=== PATIENT | female | born 1970 | race Hispanic/Latino ===

== ENCOUNTER 2024-08-17 11:33 | Inpatient (IN) | payer MEDICAID ==
[~2024-08-17] VITALS: Ht 160 cm; Wt 75.7 kg
[2024-08-17] VITALS (26 sets, daily range): BP systolic 94–148; BP diastolic 35–71; PULSE 52–86; RESP 13–26; TEMP 98.2–98.7; O2SAT 95–97
--- NOTE | 2024-08-17 11:43 | ERN ---
ED Note History of Present Illness Stated Complaint: LETHARGIC POST FALL YESTERDAY. CLEARED AT [facility] Chief Complaint: Altered Mental Status Time Seen by MD: 11:36 Dictation: PATIENT IS A 53-YEAR-OLD FEMALE COMING IN WITH EMS THE PRINCIPAL HISTORIAN. SHE IS COMING FROM A LOCAL CUSTODIAL AND HAS A HISTORY OF MR. PER EMS, SHE HAS BEEN ALTERED IN HER MENTAL STATUS IN HIS NORMALLY MORE ALERT TALKING ANSWERING QUESTIONS FOR TWO DAYS. NO NAUSEA NO VOMITING. SHE DOES HAVE FEVER AT THIS TIME AND FEELS WARM TO TOUCH LIPS ARE NOTED TO BE CRACKED AND DRY, SHE IS MOUTH BREATHING. POORLY RESPONSIVE TO QUESTIONING OR STERNAL RUB. Allergies: Coded Allergies: No Known Allergies (Unverified Allergy, Unknown, 08/17/24) Past Medical History History: Not Applicable RN Note Reviewed/Agreed w/PFSH: Yes Review of System Dictation CONSTITUTIONAL: NEGATIVE EXCEPT FOR HPI FEVER CHILLS HEAD/FACE: NEGATIVE EXCEPT FOR HPI EENT: NEGATIVE EXCEPT FOR HPI RESPIRATORY: NEGATIVE EXCEPT FOR HPI GASTROINTESTINAL/ABDOMINAL: NEGATIVE EXCEPT FOR HPI GENITOURINARY: NEGATIVE EXCEPT FOR HPI MUSCULOSKELETAL: NEGATIVE EXCEPT FOR HPI INTEGUMENTARY: NEGATIVE EXCEPT FOR HPI NEUROLOGICAL/PSYCH: NEGATIVE EXCEPT FOR HPI ALTERED MENTAL STATUS HEMATOLOGIC/LYMPHATIC: NEGATIVE EXCEPT FOR HPI ALL SYSTEMS NEGATIVE, EXCEPT NOTED ABOVE. 13 POINT REVIEW OF SYSTEMS ASSESSED AND ALL NEGATIVE EXCEPT FOR ABOVE. Initial Vital Sign VS Vital Signs Date Time Temp Pulse Resp B/P (MAP) Pulse Ox O2 Delivery O2 Flow Rate FiO2 08/17/24 11:40 99.7 121 23 83/58 95 Room Air 0 08/17/24 12:05 21 Physical Exam Dictation VITAL SIGNS REVIEWED GENERAL APPEARANCE: PATIENT WILL OPEN EYES TO STERNAL RUB HOWEVER NOT ANSWERING QUESTIONS. HEAD AND FACE: NON-TRAUMATIC. EYES: PERRL, PINK CONJUNCTIVAS, EYELID NO TRAUMA, ANTERIOR CHAMBER WITH ARCUS SENILIS. PERRLA EARS: PINNAS INTACT AND NO SIGNS OF TRAUMA OR ERYTHEMA EAR CANALS CLEAR AND NO DISCHARGE TM NO ERYTHEMA NOSE: NO DISCHARGE, NO BLEEDING. OROPHARYNX: MUCOUS MEMBRANES ARE DRY LIPS ARE DRY PATIENT IS A MOUTH BREATHER PHARYNX CLEAR,NO ERYTHEMA, TONSILS NO EXUDATES, NO ABSCESSES NOTED, MUCOUS MEMBRANE MOIST NECK: SUPPLE, NON-TENDER, NO THYROMEGALY, NO MASSES, NO JVD, NO BRUITS BREAST:DEFERRED CHEST:NO TENDERNESS, NO CREPITUS, NO PARADOXICAL MOVEMENT, NO RETRACTIONS LUNGS:CLEAR, WELL-VENTILATED, SYMMETRIC, NO RALES, NO WHEEZING, NO RHONCHI, NO STRIDOR, GOOD BREATH SOUNDS BILATERALLY HEART: REGULAR RATE, REGULAR RHYTHM, NO MURMUR, NO GALLOPS VASCULAR: NO PERIPHERAL EDEMA, ABDOMEN: SOFT, POSITIVE BOWEL SOUNDS, NONDISTENDED, NO GUARDING, NONTENDER, NO REBOUND, NO MASSES NO HEPATOMEGALY, NO SPLENOMEGALY, NO GIFFORD'S SIGN, NO HERNIAS. RECTAL: DEFERRED GENITAL: DEFERRED NEUROLOGICAL: ALTERED MENTAL STATUS RESPIRATIONS ARE UNLABORED MUSCULOSKELETAL: EXTREMITIES: NONTENDER, FULL RANGE OF MOTION SKIN: COLOR PINK, DRY, NO TURGOR, NO RASH, NO LACERATIONS, NO ABRASIONS, NO CONTUSIONS. LYMPHATIC: DEFERRED Results (Laboratory/Radiology) Laboratory/Radiology Laboratory Tests Test 08/17/24 11:50 08/17/24 12:50 08/17/24 14:27 08/17/24 16:09 White Blood Count 10.8 K/uL (4.8-10.8) Red Blood Count 4.50 MIL/uL (4.00-5.50) Hemoglobin 14.4 g/dL (12.0-16.0) Hematocrit 41.2 % (36-48) Mean Corpuscular Volume 91.6 fL (79-99) Mean Corpuscular Hemoglobin 32.0 pg (27.0-33.0) Mean Corpuscular Hemoglobin Concent 35.0 g/dL (32.0-36.0) Red Cell Distribution Width 14.2 % (11.0-15.5) Platelet Count 93 K/uL (130-400) L Mean Platelet Volume 11.1 fL (7.5-10.5) H Immature Granulocyte % (Auto) 0.4 % (0-1) Neutrophils (%) (Auto) 85.5 % (40.0-77.0) H Lymphocytes (%) (Auto) 7.2 % (21.0-51.0) L Monocytes (%) (Auto) 6.7 % (3.0-13.0) Eosinophils (%) (Auto) 0.0 % (0.0-8.0) Basophils (%) (Auto) 0.2 % (0.0-5.0) Neutrophils # (Auto) 9.2 K/uL (1.8-7.7) H Lymphocytes # (Auto) 0.8 K/uL (1.0-4.8) L Monocytes # (Auto) 0.7 K/uL (0.1-1.0) Eosinophils # (Auto) 0.00 K/uL (0.00-0.70) Basophils # (Auto) 0.02 K/uL (0.00-0.20) Absolute Immature Granulocyte (auto 0.04 K/uL (0-1) Segmented Neutrophils % 38 % (40-70) L Band Neutrophils % 41 % (0-2) H Lymphocytes % (Manual) 12 % (22-44) L Monocytes % (Manual) 5 % (2-9) Metamyelocytes % 4 % (0-0) H Nucleated Red Blood Cells 0.0 % (0.0-0.19) Differential Comment MANUAL DIFFERENTIAL White Cell Morphology Comment CONSISTENT W/DIFF Platelet Morphology Comment DECREASED Red Blood Cell Morphology ANISO 1+ Sodium Level 129 mmol/L (136-145) L Potassium Level 3.6 mmol/L (3.5-5.1) Chloride Level 93 mmol/L (101-111) L Carbon Dioxide Level 30 mmol/L (21-32) Blood Urea Nitrogen 6 mg/dL (7-18) L Creatinine 0.9 mg/dL (0.5-1.0) Glomerular Filtration Rate Calc 77 mL/min (>90) Random Glucose 85 mg/dL (70-105) Lactic Acid Level 3.3 mmol/L (0.8-2.5) H 1.8 mmol/L (0.8-2.5) Total Calcium 8.5 mg/dL (8.5-10.1) Total Creatine Kinase 459 U/L (21-232) #*H 491 U/L (21-232) *H Troponin I High Sensitivity 10 ng/L (4-50) 8.8 ng/L (4-50) Urine Color YELLOW (YELLOW) Urine Appearance CLEAR (CLEAR) Urine pH 8.0 (5.0-8.0) Urine Specific [place] 1.015 (1.001-1.031) Urine Protein 10 mg/dL (NEGATIVE) H Urine Glucose (UA) NEGATIVE mg/dL (NEGATIVE) Urine Ketones 20 mg/dL (NEGATIVE) H Urine Occult Blood LARGE (NEGATIVE) H Urine Nitrate NEGATIVE (NEGATIVE) Urine Bilirubin NEGATIVE mg/dL (NEGATIVE) Urine Urobilinogen 3 mg/dL (0.2-1.0) H Urine Leukocyte Esterase NEGATIVE Jessica/uL Urine RBC 11-25 /HPF (0-1) H Urine WBC 0-1 /HPF (0-1) Urine Squamous Epithelial Cells FEW /HPF (0-2) Urine Bacteria RARE /HPF (None Seen) Influenza Type A Antigen Negative For Type A Influenza Type B Antigen Negative For Type B SARS-CoV-2 Antigen (Rapid) PRESUMPTIVE NEGATIVE Prothrombin Time 13.4 SEC (9.6-11.6) H Prothromb Time International Ratio 1.30 (0.85-1.15) H Activated Partial Thromboplast Time 41.0 SEC (26.3-35.5) H REASON: ALTERED MENTAL STATUS TWO DAYS ORDERING PHYSICIAN: TORI MORGAN NP PROCEDURE: HEAD WO - CT HEAD/BRAIN W/O CONTRAST CT HEAD/BRAIN W/O CONTRAST HISTORY: Altered mental status COMPARISON: None TECHNIQUE: Multiple sequential axial images of the head were obtained from the base of the skull through vertex. Patient was not given contrast through intravenous route. FINDINGS: The ventricles and extraventricular CSF spaces are dilated consistent with cerebral atrophy. Nonspecific white matter changes seen. There is no midline shift, mass effect or herniation. No acute intracranial bleed is seen. Visualized portion of the paranasal sinuses are grossly within normal limits. IMPRESSION: 1. No acute intracranial bleed is seen. 2. Atrophy with white matter changes. Labs Reviewed?: Yes EKG Comment: EKG sinus tachycardia/heart rate 125/at left atrial enlargement ED Course ED Course Orders Procedure Category Date Status Time Iv Insertion CPOE 08/17/24 Transmitted 11:35 Pulse Ox(Continuous) RT 08/17/24 Transmitted 11:35 Vital Signs Per CPOE 08/17/24 Transmitted Routine 11:35 12 Lead Ekg Tracing- EKG 08/17/24 Complete Technical 11:35 Cbc With Differential LAB 08/17/24 In Process 11:35 Blood Cult PEARL 08/17/24 In Process 11:35 Urinalysis Profile LAB 08/17/24 Logged 11:35 Culture Urine PEARL 08/17/24 In Process 11:35 Creatine Kinase, Total LAB 08/17/24 Complete 11:35 Lactic Acid LAB 08/17/24 Complete 11:35 Basic Metabolic Panel LAB 08/17/24 Complete 11:35 Covid19 (Sars Antigen LAB 08/17/24 Complete Rapid) 11:36 Influenza Type A & B, LAB 08/17/24 Complete Rapid 11:36 Nurse Driven Mayo MYKE 08/17/24 In Process Removal Pro 11:36 Urinalysis Profile LAB 08/17/24 Complete 11:36 Troponin I High LAB 08/17/24 Complete Sensitivity 11:36 0.9%Nacl 1000ml (Ns PHA 08/17/24 Complete 1000ml) 12:00 Ct Head/Brain W/O CT 08/17/24 Resulted Contrast 11:40 0.9%Nacl 1000ml (Ns PHA 08/17/24 Complete 1000ml) 12:30 Zosyn 3.375gm+Ns 50ml PHA 08/17/24 Complete (Zosyn 3.375gm+Ns 12:30 Ipratropium/Albuterol PHA 08/17/24 Complete Neb (Duoneb) 13:00 Manual Differential LAB 08/17/24 In Process 11:50 Chest 1vw RAD 08/17/24 Resulted 13:56 Admit Orders ADM 08/17/24 Transmitted 14:06 Edm Admit Bridge Order ADM 08/17/24 Transmitted 14:06 Vital Signs Every 4 CPOE 08/17/24 Transmitted Hours 14:04 Daily Weights CPOE 08/17/24 Transmitted 14:04 I&O Q Shift CPOE 08/17/24 Transmitted 14:04 Eval Request For DIETOTHR 08/17/24 Transmitted Dietitian 14:04 Cbc With Differential LAB 08/18/24 Verified 04:00 Magnesium LAB 08/18/24 Verified 04:00 Phosphorus LAB 08/18/24 Verified 04:00 Procalcitonin LAB 08/18/24 Verified 04:00 D-Dimer LAB 08/18/24 Verified 04:00 Cardiac Panel LAB 08/17/24 Complete 14:04 Cardiac Panel LAB 08/17/24 Logged 20:04 Cardiac Panel LAB 08/18/24 Verified 02:04 Thyroid Stimulating LAB 08/18/24 Verified Hormone 04:00 B-Type Natriuretic LAB 08/18/24 Verified Peptide 04:00 Respiratory Cult PEARL 08/17/24 Logged W/Gram Stain 14:04 0.9%Nacl 1000ml (Ns PHA 08/17/24 In Process 1000ml) 14:30 Azithromycin 500mg+Ns PHA 08/18/24 In Process 250ml (Azithromyci 09:00 Zosyn 3.375gm+Ns 50ml PHA 08/17/24 In Process (Zosyn 3.375gm+Ns 20:30 Polyethylene Glycol PHA 08/18/24 In Process 3350 (Miralax 3350 1 09:00 Pantoprazole 40mg Tab PHA 08/18/24 In Process (Protonix 40mg Tab 09:00 Enoxaparin Sodium 30 PHA 08/18/24 In Process Mg/0.3 Ml (Lovenox) 09:00 Acetaminophen 325 Tab PHA 08/17/24 In Process (Tylenol 325mg Tab 14:30 Acetaminophen 650mg PHA 08/17/24 In Process Supp (Tylenol 650mg 14:30 Lactulose 20 Gm/30 Ml PHA 08/17/24 In Process Udcup (Constulose 14:30 Turn Patient Q2hrs CPOE 08/17/24 Transmitted 14:04 Elevate Hob At 30 CPOE 08/17/24 Transmitted Degrees 14:04 Admit Orders ADM 08/17/24 Transmitted 14:04 Condition: CPOE 08/17/24 Transmitted 14:04 Telemetry Monitoring CPOE 08/17/24 Transmitted 14:04 Initiate MYKE 08/17/24 In Process Hyperglycemia Protoco 14:04 Mrsa Nasal Screen-Pcr PEARL 08/17/24 In Process 14:[address] 08/17/24 Transmitted Order 14:21 Pt Eval And Treat PT 08/17/24 Transmitted 14:21 Case Management CM 08/17/24 Transmitted Evaluation 14:21 Levetiracetam 500 PHA 08/17/24 In Process Mg/5 Ml Sd V (Keppra 5 15:30 Levetiracetam 500 PHA 08/17/24 Complete Mg/5 Ml Sd V (Keppra 5 15:07 Lactic Acid (Removed) LAB 08/17/24 Complete 15:25 Vasopressin 20 PHA 08/17/24 In Process Units/Ml 1ml Vi 16:00 Phenylephrine Hcl PHA 08/17/24 Complete (Phenylephrine Hcl) 16:00 Place Picc Line CPOE 08/17/24 Transmitted 15:58 Prothrombin Time With LAB 08/17/24 Complete INR 15:58 Pt And Ptt LAB 08/17/24 Complete 15:58 Vasopressin 20 PHA 08/17/24 Complete Units/Ml 1ml Vi 15:59 Transfer To: CPOE 08/17/24 Transmitted 16:21 Arterial Blood Gas + RT 08/17/24 Transmitted 16:27 Phenylephrine Hcl PHA 08/17/24 In Process (Phenylephrine Hcl) 17:00 Sodium Chloride 3% PHA 08/17/24 Complete Inh (Sodium Chloride 16:40 Chest 1vw RAD 08/17/24 Logged 16:42 Phenylephrine Hcl PHA 08/17/24 Complete (Phenylephrine Hcl) 16:44 Norepinephrin 4mg/Ns PHA 08/17/24 In Process 250ml (Levophed 4mg 17:00 Norepinephrin 4mg/Ns PHA 08/17/24 Complete 250ml (Levophed 4mg 16:49 Vital Signs Date Time Temp Pulse Resp B/P (MAP) Pulse Ox O2 Delivery O2 Flow Rate FiO2 08/17/24 16:46 72 1 76/39 95 Room Air* 0 08/17/24 16:14 104 84/39 Room Air* 0 08/17/24 16:13 84/39 08/17/24 15:43 100.2 102 15 86/37 94 Room Air* 0 08/17/24 14:35 100.9 08/17/24 14:32 100.9 121 22 100/42 97 Room Air* 0 08/17/24 13:16 116 18 96/45 97 Room Air* 0 08/17/24 13:06 18 08/17/24 12:26 117 16 104/41 97 Room Air* 0 08/17/24 12:05 99.7 125 25 94/45 93 Room Air* 0 08/17/24 11:40 99.7 121 23 83/58 95 Room Air 0 1228/patient has a lactic acid of 3.3. She is borderline hypotensive, has already received1 L of fluids we will be given 30 per kilos fluids to include1 L and calculations, and Zosyn 3.375. Anticipate admission to the hospital if CT of the head is negative for any central lesion fracture etc. 1400/SPOKE WITH FABRIZIO WANG HOSPITALIST AND PATIENT WAS ADMITTED TO THE HOSPITAL FOR SEPSIS DEHYDRATION ALTERED MENTAL STATUS HYPONATREMIA/FEET CHEST X-RAY AND URINE STILL PENDING HOWEVER PATIENT HAS BEEN TREATED WITH BROAD-SPECTRUM ANTIBIOTICS AND 30 PER KILOS FLUIDS. SHE REMAINS HEMODYNAMICALLY STABLE. SHE IS NOW MORE ALERT ANSWERING SIMPLE QUESTIONS. HEART Score Response (Comments) Value Age: 45-65yrs (+1) 1 Risk Factors: 1-2 risk factors (+1) 1 Initial Troponin: Normal limit (0) 0 Total 2 Medical Decision Making MDM MDM: DIFFERENTIAL DIAGNOSIS: SEPSIS FEVER CHILLS/PNEUMONIA/ BRONCHITIS/UTI/SARS/INFLUENZA/CLOSED HEAD INJURY/SKULL FRACTURE RATIONALE: TESTS CONSIDERED AND ORDERED SECONDARY TO SHARED DECISION MAKING INCLUDE: LABS, ECG AND RADIOLOGY PREVIOUS OUTSIDE RECORDS REVIEWED: OLD ER VISITS. RISK OF COMPLICATION AND/OR MORBIDITY OR MORTALITY OF PATIENT MANAGEMENT: NONE MEDICATIONS-PER MEDICATION RECONCILIATION NEED FOR HOSPITALIZATION: PATIENT DOES MEET CRITERIA FOR HOSPITALIZATION. YES PATIENT WILL NEED CONTINUED FLUID RESUSCITATION BROAD-SPECTRUM ANTIBIOTICS AND MANAGEMENT NEED FOR EMERGENCY MAJOR/MINOR SURGERY: NO THERE ARE NO SOCIAL CONCERNS WITH THIS PATIENT. PATIENT WILL NOT 100% DEPENDENT WITH HISTORY OF MR PRESCRIPTION DRUG MANAGEMENT PRESCRIPTIONS WILL INCLUDE SYMPTOMATIC CARE PATIENT'S PRIOR EXTERNAL MEDICAL RECORDS FROM OTHER ER VISITS WERE REVIEWED BY ME INDICATED. PRIOR TESTING AND RESULTS FROM PREVIOUS VISITS WERE REVIEWED. PRIOR TESTS WERE TAKEN INTO ACCOUNT WITH MEDICAL DECISION MAKING AND RESOURCE UTILIZATION, INDEPENDENT HISTORIAN/HISTORIANS WERE USED TO OBTAIN COMPLETE MEDICAL HISTORY. I INDEPENDENTLY INTERPRETED THE TEST THAT WERE PERFORMED, RESULTS WERE REVIEWED BY ME AND CONSIDERED FINDINGS ON RADIOLOGY IF ORDERED. MEDICAL MANAGEMENT AND EXAMINATION INTERPRETATION DISCUSSIONS WERE HAD BY ME WITH OTHER QUALIFIED HEALTHCARE PROFESSIONALS INDICATED FOR THE PATIENT'S CARE. DX & DISP Disposition: Inpatient Departure Impression: Primary Impression: Sepsis Additional Impressions: Fever, Hyponatremia, Moderate dehydration, Hypotension Critical Time: 30 minutes (Critical Care Procedure NoteAuthorized and Performed by: meTotal critical care time: Approximately 36 minutesDue to a high probability of clinically significant, life threatening deterioration, the patient required my highest level of preparedness to intervene emergently and I personally spent this critical care time directly and personally managing the patient. This critical care time included obtaining a history; examining the patient; pulse oximetry; ordering and review of studies; arranging urgent treatment with development of a management plan; evaluation of patient's response to treatment; frequent reassessment; and, discussions with other providers.This critical care time was performed to assess and manage the high probability of imminent, life-threatening deterioration that could result in multi-organ failure. It was exclusive of separately billable procedures and treating other patients and teaching time.Please see MDM section and the rest of the note for further information on patient assessment and treatment.) Condition: Stable Referrals: LISA CHAN MD (PCP) Time of Disposition: 14:05 I have reviewed the case, and I agree with, Diagnosis and Plan I performed a substantive portion of the visit. I have reviewed and personally made and approve the management plan that is documented in the notes by myself with JUAN/resident. I acknowledged full responsibility for the patient's management plan. 53-year-old female mental disability presents with sepsis. Sepsis criteria on labs. Vitals stable. Likely pneumonia as the source based on chest x-ray. Received IV fluids including 30 cc/kg is of normal saline, received antibiotics. Sepsis focused re-evaluation after the fluids and antibiotics, stable perfusion, cap refill less than 2 seconds, stable vital signs. Admitted to the hospitalist. TORI MORGAN NP Aug 17, 2024 11:43 CHUCK EUBANKS DO Aug 17, 2024 16:55
--- NOTE | 2024-08-17 12:06 | EKG ---
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
--- NOTE | 2024-08-17 12:16 | NUR ---
PT WAS UNDRESSED AND PLACED IN A HOSPITAL GOWN
[2024-08-17] MEDS: 0.9%NACL 1000ML 1,000 ML IV ONE (12:17)
[2024-08-17 12:20] LABS: BASOPHILS # (AUTO) 0.02 K/uL (0.00-0.20); BASOPHILS % (AUTO) 0.2 % (0.0-5.0); HEMATOCRIT 41.2 % (36-48); IMMATURE GRANULOCYTE ABSOLUTE 0.04 K/uL (0-1); LYMPHOCYTES # (AUTO) 0.8 K/uL (1.0-4.8); LYMPHOCYTES % (AUTO) 7.2 % (21.0-51.0); MEAN CORPUSCULAR VOLUME 91.6 fL (79-99); MONOCYTES # (AUTO) 0.7 K/uL (0.1-1.0); MONOCYTES % (AUTO) 6.7 % (3.0-13.0); NEUTROPHILS # (AUTO) 9.2 K/uL (1.8-7.7); NEUTROPHILS % (AUTO) 85.5 % (40.0-77.0); PLATELET COUNT (AUTO) 93 K/uL (130-400); RED CELL DISTRIBUTION WIDTH 14.2 % (11.0-15.5); WHITE BLOOD COUNT (AUTO) 10.8 K/uL (4.8-10.8)
[2024-08-17 12:27] LABS: CREATININE 0.9 mg/dL (0.5-1.0); POTASSIUM 3.6 mmol/L (3.5-5.1)
[2024-08-17] MEDS: 0.9%NACL 1000ML 1,770 ML IV ONE (12:32)
[2024-08-17] MEDS: ZOSYN 3.375GM +NS 50ML IVPB ONE (12:33)
[2024-08-17] MEDS: IpraTROPium/alBUTERol SULFATE 3 ML SOLUTION IH ONE (13:06)
[2024-08-17 13:32] LABS: BAND NEUTROPHILS % (MANUAL) 41 % (0-2); LYMPHOCYTES % (MANUAL) 12 % (22-44); MAN.DIFF COMMENT-IMPRESSION MANUAL DIFFERENTIAL; METAMYELOCYTES % 4 % (0-0); MONOCYTES % (MANUAL) 5 % (2-9); SEGMENTED NEUTROPHILS % 38 % (40-70); TOTAL CELLS COUNTED 100
[2024-08-17 13:33] LABS: PLATELET MORPHOLOGY COMMENT DECREASED; WBC MORPHOLOGY CONSISTENT W/DIFF
[2024-08-17 13:35] LABS: COVID19 (SARS ANTIGEN RAPID) PRESUMPTIVE NEGATIVE (NEGATIVE); INFLUENZA TYPE A Negative For Type A (NEGATIVE); INFLUENZA TYPE B Negative For Type B (NEGATIVE)
[2024-08-17 13:53] LABS: APPEARANCE,URINE CLEAR (CLEAR); BILIRUBIN,URINE NEGATIVE (NEGATIVE); COLOR,URINE YELLOW (YELLOW); GLUCOSE, URINE (UA) NEGATIVE (NEGATIVE); KETONES,URINE 20 mg/dL (NEGATIVE); LEUKOCYTE ESTERASE ,URINE NEGATIVE Leu/uL (NEGATIVE); NITRATE,URINE NEGATIVE (NEGATIVE); OCCULT BLOOD,URINE LARGE (NEGATIVE); PROTEIN,URINE 10 mg/dL (NEGATIVE); UROBILINOGEN,URINE 3 mg/dL (0.2-1.0)
--- NOTE | 2024-08-17 14:00 | HMCIMG ---
CT HEAD/BRAIN W/O CONTRAST HISTORY: Altered mental status COMPARISON: None TECHNIQUE: Multiple sequential axial images of the head were obtained from the base of the skull through vertex. Patient was not given contrast through intravenous route. FINDINGS: The ventricles and extraventricular CSF spaces are dilated consistent with cerebral atrophy. Nonspecific white matter changes seen. There is no midline shift, mass effect or herniation. No acute intracranial bleed is seen. Visualized portion of the paranasal sinuses are grossly within normal limits. IMPRESSION: 1. No acute intracranial bleed is seen. 2. Atrophy with white matter changes. CT was performed with one or more following dose reduction techniques: automated exposure control, adjustment of the mA and kv according to patient's size, or use of a iterative reconstruction technique.
[2024-08-17 14:06] LABS: ADD UA MICROSCOPIC YES
[2024-08-17 14:07] LABS: BACTERIA,URINE RARE /HPF (None Seen); MUCUS,URINE RARE LPF (None Seen); SQUAMOUS EPITHELIAL CELL,UR FEW /HPF (0-2); WBC,URINE 0-1 /HPF (0-1)
[2024-08-17] MEDS ORDERED: LACTULOSE 20 GM/30 ML UDCUP PO PRN (14:30)
[2024-08-17] MEDS: 0.9%NACL 1000ML 1,000 ML IV SCH (14:35)
[2024-08-17] MEDS: acetaMINOPHEN 650 MG SUPPOSITORY RC PRN (14:35)
[2024-08-17] MEDS: leveTIRACEtam 500 MG/5 ML SD VIAL IV SCH (15:09)
[2024-08-17] MEDS: leveTIRACEtam 500 MG/5 ML SD VIAL IV ONE (15:09)
--- NOTE | 2024-08-17 15:17 | HMCIMG ---
CHEST 1VW HISTORY: Shortness of breath COMPARISON: 11/12/2016 FINDINGS: A frontal projection of the chest was obtained. Left lower lung pulmonary infiltrates are seen. The heart is normal in size. Degenerative changes are seen. No evidence of aortic calcification is seen. IMPRESSION: 1. Left lower lung pulmonary infiltrates are seen.
--- NOTE | 2024-08-17 15:53 | NUR ---
LOW BP REPORTED TO ADMITTING
--- NOTE | 2024-08-17 15:54 | NUR ---
PO TRIAL: PATIENT UNABLE TO PERFORM PO TRIAL. UNABLE PURSE LIPS TO USE STRAW. SHAKES HEAD STATING NO WHEN ASKING PATIENT TO TRY TO DRINK WATER.
[2024-08-17] MEDS ORDERED: phenylEPHRINE HCL 10 MG in 0.9% NACL 250ML 250 ML IV PRN (16:00)
[2024-08-17] MEDS: VASOpressin 20 UNITS/ML 1ML VIAL ONE (16:12)
[2024-08-17] MEDS: VASOpressin 20 UNITS/ML 1ML Vi 20 UNITS in 0.9%NACL 100ML 100 ML IV SCH (16:13)
[2024-08-17 16:37] LABS: INR 1.3 (0.85-1.15); PROTHROMBIN TIME 13.4 SEC (9.6-11.6)
[2024-08-17] MEDS: SODIUM CHLORIDE 3% FOR INHALATION 4 ML/AMP VIAL.NEB IH ONE ×2 (16:44→18:31)
[2024-08-17] MEDS: phenylEPHRINE HCL 10 MG/ML 1ML VIAL IV ONE (16:48)
[2024-08-17] MEDS: NOREPINEPHRIN 4MG/NS 250ML 250 ML IV SCH (16:54)
[2024-08-17] MEDS: NOREPINEPHRIN 4MG/NS 250ML 250 ML IV ONE (16:54)
[2024-08-17] MEDS ORDERED: phenylEPHRINE HCL 100 MG in 0.9% NACL 250ML 250 ML IV SCH (17:00)
[2024-08-17 17:02] LABS: ABG BASE EXCESS -2.4 mmol/L (-2.0-3.0); ABG HCO3 20.4 mmol/L (21.0-28.0); ABG OXYGEN SATURATION 94.5 % (94.0-98.0); ABG PCO2 29 mmHg (32-45); ABG PH 7.468 (7.350-7.450); CARBON MONOXIDE 0 % (0.5-1.5); DEVICE COMMENT LB MICHAEL RN; HHb 5.5; PO2, ARTERIAL BG 74.1 mmHg (83.0-108.0); VENT MODE, BG RA (ROOM AIR)
--- NOTE | 2024-08-17 17:03 | HP ---
[facility] HISTORY & PHYSICAL Date Patient Seen: Aug 17, 2024 Time of Visit: 17:03 Supervising Physician: Dr. Ang Burgess Primary Care Physician: Dr. 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 Patient arrived with a helmet, known to have seizure disorders. Per paperwork that arrived with the patient also listed with mild ADD and organic affective disorder with psychosis as well as depression. Patient's Keppra was restarted IV as she is unable to take p.o. at this time, 1 g IV push b.i.d.. The remainder of the patient's medications have been restarted as possible on IV basis. Patient remained hypotensive with a systolic pressure at 100 during the evaluation, nursing staff later reported the patient had begun to dip down into the 80s systolic despite fluid bolus and sepsis protocol. Patient has been upgraded to ICU status for the administration of pressors at this time. Patient remains nonverbal, she is able to respond to simple questions with yes or no grunts, able to follow basic commands although appears to struggle to do so. Patient with severe upper respiratory congestion, suction placed as patient appears to be unable to expectorate. Patient has dark urine, appears to be severely dehydrated. Paperwork that arrived with the patient states that she had a fall at the detention, head CT is negative at this time, chest x-ray shows left lower lung pulmonary infiltrates. Patient will be started on antibiotic regimen for community-acquired pneumonia, urinalysis was negative for acute infection however positive for hematuria. Patient's CK levels are at 491 and she currently continues on fluid hydration. Lactic acid levels have returned to normal at 1.8, from 3.3 on admission. Patient's renal function is within normal limits, white count also within normal limits. Patient's serology is negative for flu or COVID. She remains on room air at this time. PAST MEDICAL HX: see above PAST SURGICAL HX: noncontributory SOCIAL HISTORY: No tobacco, ETOH, or illicit drug use Coded Allergies: No Known Allergies (Unverified Allergy, Unknown, 08/17/24) REVIEW OF SYSTEMS: 12 point ROS reviewed with patient. Pertinent positives mentioned above. Otherwise negative. PHYSICAL EXAM: GENERAL: alert, weak, awake oriented x 3 HEENT: EOMI, Sclera non icteric, moist mucosa NECK: Supple, no JVD, trachea midline LUNGS: Clear breath sounds bilaterally. No wheezes HEART: Regular rate and rhythm. Normal S1 and S2, without murmurs ABD: Abdomen soft, nontender. Bowel sounds present EXT: No clubbing cyanosis or edema NEURO: Alert and oriented to person, follows commands Vital Signs (last 8hr) Date Time Temp Pulse Resp B/P (MAP) Pulse Ox O2 Delivery O2 Flow Rate FiO2 08/17/24 16:54 78/34 08/17/24 16:46 72 1 76/39 95 Room Air* 0 08/17/24 16:14 104 84/39 Room Air* 0 08/17/24 16:13 84/39 08/17/24 15:43 100.2 102 15 86/37 94 Room Air* 0 08/17/24 14:35 100.9 08/17/24 14:32 100.9 121 22 100/42 97 Room Air* 0 08/17/24 13:16 116 18 96/45 97 Room Air* 0 08/17/24 13:06 18 08/17/24 12:26 117 16 104/41 97 Room Air* 0 08/17/24 12:05 99.7 125 25 94/45 93 Room Air* 0 08/17/24 11:40 99.7 121 23 83/58 95 Room Air 0 LABS: Hematology Labs: Test 08/17/24 11:50 Range/Units White Blood Count 10.8 4.8-10.8 K/uL Red Blood Count 4.50 4.00-5.50 MIL/uL Hemoglobin 14.4 12.0-16.0 g/dL Hematocrit 41.2 36-48 % Mean Corpuscular Volume 91.6 79-99 fL Mean Corpuscular Hemoglobin 32.0 27.0-33.0 pg Mean Corpuscular Hemoglobin Concent 35.0 32.0-36.0 g/dL Red Cell Distribution Width 14.2 11.0-15.5 % Platelet Count 93 L 130-400 K/uL Mean Platelet Volume 11.1 H 7.5-10.5 fL Immature Granulocyte % (Auto) 0.4 0-1 % Neutrophils (%) (Auto) 85.5 H 40.0-77.0 % Lymphocytes (%) (Auto) 7.2 L 21.0-51.0 % Monocytes (%) (Auto) 6.7 3.0-13.0 % Eosinophils (%) (Auto) 0.0 0.0-8.0 % Basophils (%) (Auto) 0.2 0.0-5.0 % Neutrophils # (Auto) 9.2 H 1.8-7.7 K/uL Lymphocytes # (Auto) 0.8 L 1.0-4.8 K/uL Monocytes # (Auto) 0.7 0.1-1.0 K/uL Eosinophils # (Auto) 0.00 0.00-0.70 K/uL Basophils # (Auto) 0.02 0.00-0.20 K/uL Absolute Immature Granulocyte (auto 0.04 0-1 K/uL Segmented Neutrophils % 38 L 40-70 % Band Neutrophils % 41 H 0-2 % Lymphocytes % (Manual) 12 L 22-44 % Monocytes % (Manual) 5 2-9 % Metamyelocytes % 4 H 0-0 % Nucleated Red Blood Cells 0.0 0.0-0.19 % Differential Comment MANUAL DIFFERENTIAL White Cell Morphology Comment CONSISTENT W/DIFF Platelet Morphology Comment DECREASED Red Blood Cell Morphology ANISO 1+ Chemistry Labs: Test 08/17/24 16:09 08/17/24 14:27 08/17/24 11:50 Range/Units Lactic Acid Level 1.8 0.8-2.5 mmol/L Total Creatine Kinase 491 *H 21-232 U/L Troponin I High Sensitivity 8.8 4-50 ng/L Sodium Level 129 L 136-145 mmol/L Potassium Level 3.6 3.5-5.1 mmol/L Chloride Level 93 L 101-111 mmol/L Carbon Dioxide Level 30 21-32 mmol/L Blood Urea Nitrogen 6 L 7-18 mg/dL Creatinine 0.9 0.5-1.0 mg/dL Glomerular Filtration Rate Calc 77 >90 mL/min Random Glucose 85 70-105 mg/dL Total Calcium 8.5 8.5-10.1 mg/dL Coagulation Labs: Test 08/17/24 16:09 Range/Units Prothrombin Time 13.4 H 9.6-11.6 SEC Prothromb Time International Ratio 1.30 H 0.85-1.15 Activated Partial Thromboplast Time 41.0 H 26.3-35.5 SEC DIAGNOSTICS / RADIOLOGY RESULTS: [ ] PLAN NEURO: Minimize central acting medications as possible. Maintain fall precautions, adequate lighting during the day PULMONARY: Supplemental 02 as needed. Maintain aspiration precautions at all times CARDIOVASCULAR: Follow hemodynamics. Vital signs per facility protocol GI & NUTRITION: Continue with nutritional support. Continue stool softeners and laxatives as needed. KIDNEYS & ELECTROLYTES: Strict monitoring of intake, output and overall fluid balance. Avoid nephrotoxic medications to the extent possible. Medications to be dosed according to renal function. Monitor electrolytes and replace as needed ENDOCRINE: Maintain blood glucose between 100-180 at all times. Hypoglycemia protocol in place INFECTIOUS DISEASE: Trend temperature, WBC and procalcitonin level Follow cultures, deescalate antibiotics as soon as possible. Panculture if new onset fever ONCOLOGY/HEMATOLOGY/COAGULATION: Monitor for s/s of bleeding Monitor hemoglobin, coagulation studies as needed SKIN: Pressure ulcer prevention per facility protocol Specialty mattress ORTHO/REHAB: Continue PT/OT Prophylaxis: Continue GI and DVT prophylaxis Code Status: Full Resuscitation Disposition: TBD Other: Total patient care time exceeds 35 minutes excluding all procedures. ANTONELLA OTERO Aug 17, 2024 17:03
--- NOTE | 2024-08-17 17:14 | HMCIMG ---
FRONTAL CHEST RADIOGRAPH INDICATION: POST PICC LINE PLACEMENT COMPARISON: 08/17/2024 FINDINGS/IMPRESSION: hospital monitor leads overlie the field of view. Tip of right PICC within the SVC. Remainder of the study is unchanged.
--- NOTE | 2024-08-17 17:49 | NUR ---
PER NURSE, PATIENT IS UNSTABLE: LOW BP. NURSE WILL CALL WHEN PATIENT IS READY FOR CT EXAM.
[2024-08-17 18:01] LABS: BASOPHILS # (AUTO) 0.01 K/uL (0.00-0.20); BASOPHILS % (AUTO) 0.1 % (0.0-5.0); HEMATOCRIT 29.8 % (36-48); IMMATURE GRANULOCYTE ABSOLUTE 0.05 K/uL (0-1); LYMPHOCYTES # (AUTO) 0.8 K/uL (1.0-4.8); LYMPHOCYTES % (AUTO) 8.3 % (21.0-51.0); MEAN CORPUSCULAR HEMOGLOBIN 32.2 pg (27.0-33.0); MEAN CORPUSCULAR HGB CONC 34.6 g/dL (32.0-36.0); MEAN CORPUSCULAR VOLUME 93.1 fL (79-99); MONOCYTES # (AUTO) 0.6 K/uL (0.1-1.0); MONOCYTES % (AUTO) 5.7 % (3.0-13.0); NEUTROPHILS # (AUTO) 8.6 K/uL (1.8-7.7); NEUTROPHILS % (AUTO) 85.4 % (40.0-77.0); PLATELET COUNT (AUTO) 67 K/uL (130-400); RED CELL DISTRIBUTION WIDTH 14.4 % (11.0-15.5); WHITE BLOOD COUNT (AUTO) 10.1 K/uL (4.8-10.8)
[2024-08-17] MEDS ORDERED: NOREPINEPHRINE BITARTRATE 32 MG in 0.9% NACL 250ML 250 ML IV SCH (18:30)
[2024-08-17] MEDS: PHARMACY COMMUNICATION MISC SCH (20:29)
[2024-08-17] MEDS: ZOSYN 3.375GM +NS 50ML IV SCH (20:37)
[2024-08-17] MEDS ORDERED: IOHEXOL-350 75 ML VIAL IV ONE (23:26)
[2024-08-18] VITALS (97 sets, daily range): BP systolic 84–146; BP diastolic 28–107; PULSE 42–92; RESP 11–29; TEMP 97–98.9; O2SAT 97–100
[2024-08-18] MEDS: SODIUM CHLORIDE 3% FOR INHALATION 4 ML/AMP VIAL.NEB IH ONE (00:12)
[2024-08-18 02:12] LABS: BASOPHILS # (AUTO) 0.04 K/uL (0.00-0.20); BASOPHILS % (AUTO) 0.3 % (0.0-5.0); EOSINOPHILS # (AUTO) 0.07 K/uL (0.00-0.70); EOSINOPHILS % (AUTO) 0.4 % (0.0-8.0); HEMATOCRIT 34.8 % (36-48); IMMATURE GRANULOCYTE ABSOLUTE 0.11 K/uL (0-1); LYMPHOCYTES # (AUTO) 1.4 K/uL (1.0-4.8); LYMPHOCYTES % (AUTO) 8.8 % (21.0-51.0); MEAN CORPUSCULAR HEMOGLOBIN 31.7 pg (27.0-33.0); MEAN CORPUSCULAR HGB CONC 33.9 g/dL (32.0-36.0); MEAN CORPUSCULAR VOLUME 93.5 fL (79-99); MONOCYTES # (AUTO) 0.8 K/uL (0.1-1.0); MONOCYTES % (AUTO) 5.3 % (3.0-13.0); NEUTROPHILS # (AUTO) 13.4 K/uL (1.8-7.7); NEUTROPHILS % (AUTO) 84.5 % (40.0-77.0); PLATELET COUNT (AUTO) 87 K/uL (130-400); RED BLOOD CELL COUNT(AUTO) 3.72 MIL/uL (4.00-5.50); RED CELL DISTRIBUTION WIDTH 14.4 % (11.0-15.5); WHITE BLOOD COUNT (AUTO) 15.8 K/uL (4.8-10.8)
[2024-08-18 02:37] LABS: B-TYPE NATRIURETIC PEPTIDE 62 pg/mL (0-100)
[2024-08-18 02:40] LABS: MAGNESIUM 1.5 mg/dL (1.80-2.40); PHOSPHORUS 3.4 mg/dL (2.5-4.9); THYROID STIMULATING HORMONE 6.28 uIU/mL (0.36-3.74)
[2024-08-18] MEDS: MAGNESIUM 2GM PREMIX 50ML 50 ML IV PRN (03:55)
[2024-08-18 04:49] LABS: CREATININE 0.9 mg/dL (0.5-1.0); POTASSIUM 3.7 mmol/L (3.5-5.1)
--- NOTE | 2024-08-18 07:49 | HMCIMG ---
ULTRASOUND VENOUS DOPPLER, BILATERAL LOWER EXTREMITIES INDICATION: Elevated d-dimer TECHNIQUE: Routine grayscale and color Doppler ultrasound of the bilateral lower extremity veins performed. COMPARISON: No priors. FINDINGS: The demonstrated veins of the bilateral lower extremity including the common femoral vein, femoral vein, and popliteal vein are associated with normal compressibility. Normal respiratory variation was identified. No evidence for echogenic intraluminal thrombus formation. IMPRESSION: No sonographic evidence for deep venous thrombosis within the bilateral lower extremity veins.
[2024-08-18 08:05] LABS: HEMATOCRIT 31.7 % (36-48)
--- NOTE | 2024-08-18 08:59 | NUR ---
MEDINA SPOKE WITH NURSE @[id number]
[2024-08-18] MEDS: PANTOPrazole 40 MG TAB DR PO SCH (09:00)
[2024-08-18] MEDS ORDERED: ENOXAPARIN SODIUM 30 MG/0.3 ML SQ SCH (09:00)
[2024-08-18] MEDS: polyETHYLene GLYCol 3350 17 GM POWD.PACK PO SCH (09:00)
[2024-08-18] MEDS: AZITHROMYCIN 500MG+NS 250ML IV SCH (09:35)
[2024-08-18] MEDS ORDERED: CALCIUM GLUC 1GM/10ML VIAL IVPB SCH (10:00)
[2024-08-18] MEDS ORDERED: 0.9%NACL 50ML IV SCH (10:00)
[2024-08-18] MEDS ORDERED: FAMO40TA7 PO (10:58)
[2024-08-18] MEDS ORDERED: PSYL575P22 PO (10:58)
[2024-08-18] MEDS ORDERED: LEVO50CA4 PO (10:58)
[2024-08-18] MEDS ORDERED: ESCI20TA38 PO (10:58)
[2024-08-18] MEDS ORDERED: ALEN10TA27 PO (10:58)
[2024-08-18] MEDS ORDERED: LEVE10006 PO (10:58)
[2024-08-18] MEDS ORDERED: MULT-1301 PO (10:58)
[2024-08-18] MEDS ORDERED: LUBI24CA40 PO (10:58)
[2024-08-18] MEDS ORDERED: POTA20PA32 PO (10:58)
[2024-08-18] MEDS ORDERED: DIVA-76 PO (10:58)
[2024-08-18] MEDS ORDERED: RISP1TAB68 PO (10:58)
[2024-08-18] MEDS ORDERED: [UNRECOGNIZED DRUG - REMARK] PO (10:58)
--- NOTE | 2024-08-18 11:31 | HMCIMG ---
CT FACIAL BONES WITHOUT CONTRAST INDICATION: Orbital bruising after fall TECHNIQUE: 3D helical CT acquisition through the facial bones with coronal and sagittal reformatting. CT was performed with one or more of the following dose reduction techniques: Automated exposure control, adjustment of the mA and/or kV according to patient size, or use of iterative reconstruction technique. COMPARISON: None FINDINGS: No evidence for orbital wall or zygomatic arch fracture. The globes are symmetrical in their appearance, and normal in attenuation. The optic nerves and muscles are normal in caliber. No evidence of preseptal or postseptal mass. No evidence for facial bone fracture. No nasal bone fracture identified. Cribriform plate and kirti hever are intact. Mild rightward nasal deviation. Mild left maxillary sinus mucosal thickening. Remainder of the visible paranasal sinuses are clear. Middle and inferior nasal turbinates appear unremarkable. Ostiomeatal units are patent bilaterally. Extensive dental disease. IMPRESSION: No evidence for acute facial bone fracture.
--- NOTE | 2024-08-18 11:39 | HMCIMG ---
CT ABDOMEN WITH CONTRAST. CT PELVIS WITH CONTRAST INDICATION: Trapping hemoglobin TECHNIQUE: Routine transaxial images using 5 mm slice thickness were obtained after the intravenous infusion of 100 mL of Omnipaque 350 without adverse effects. Oral contrast was not administered. Rectal contrast was not administered. Coronal and sagittal reformatted images acquired for interpretation. CT was performed with one or more of the following dose reduction techniques: Automated exposure control, adjustment of the mA and/or kV according to patient size, or use of iterative reconstruction technique. COMPARISON: None FINDINGS: ABDOMEN: Heart size is normal. Left lower lung opacities in trace left pleural fluid. The liver is normal in size and smooth in contour without lesions or biliary duct dilation. The spleen is normal in size without lesions. The gallbladder appears normal. The pancreas appears normal without pancreatic duct dilation. The adrenal glands appear normal. Both kidneys appear unremarkable. Cortical nephrograms are symmetric and normal in appearance bilaterally. No evidence for intra-abdominal free air or organized fluid collection. No retrocrural, intraabdominal, or retroperitoneal lymphadenopathy identified. No aortic aneurysmal dilation or dissection identified. PELVIS: No evidence for free air or organized pelvic fluid collection. No significant pelvic adenopathy detected. Trace contrast material dependently within the cecum, and scattered throughout the ascending colon. Terminal ileum appears normal. The appendix appears normal. Mayo catheter occupies the urinary bladder and small amount of air nondependently within the urinary bladder is likely related. Chronic moderate to severe L1 vertebral body compression deformity and mild kyphosis at the T12-L1 level. Chronic mild to moderate T11 greater than T10 vertebral body compression deformities. IMPRESSION: Trace contrast material dependently within the cecum, perhaps representing site of active bleeding, and also scattered throughout the proximal colon. Nuclear medicine GI bleeding scan can be obtained for further evaluation. Left lower lobe pneumonia and trace left pleural fluid.
--- NOTE | 2024-08-18 12:37 | HMCIMG ---
RIGHT ANKLE RADIOGRAPHS - 3 VIEWS INDICATION: Fracture history, pain COMPARISON: None FINDINGS: AP, lateral, and suboptimal oblique views. Nondisplaced medial malleolus fracture. Suboptimal oblique view limits detailed assessment of the lateral malleolus. Cortical irregularity along the anterolateral margin of the lateral malleolus may represent spurring. The talar dome is intact. Ankle mortise and tibial plafond are well maintained. No significant joint effusion is present. No radiopaque foreign body noted. IMPRESSION: Nondisplaced medial malleolus fracture. Suboptimal oblique view limits detailed assessment of the lateral malleolus.
[2024-08-18] MEDS: levoTHYROxine 25 MCG TABLET PO ONE (13:54)
[2024-08-18 15:29] LABS: HEMATOCRIT 31.7 % (36-48)
--- NOTE | 2024-08-18 17:27 | HMCIMG ---
PORTABLE CHEST RADIOGRAPH INDICATION: S/P VQSCAN COMPARISON: 08/17/2024 FINDINGS: classroom monitor leads overlie the field of view. Stable right PICC. Heart size is normal. The pulmonary vascularity and kurt appear normal. Left lower lobe linear opacities, some of which may represent scarring. No significant pleural effusion noted. No pneumothorax detected. IMPRESSION: Left lower lobe opacities, some of which may represent scarring. Follow-up chest radiograph is advised in order to ensure resolution.
--- NOTE | 2024-08-18 17:45 | HMCIMG ---
NUCLEAR MEDICINE VENTILATION/PERFUSION SCAN INDICATION: And elevated d-dimer COMPARISON: Most Recent Chest Radiograph from 08/18/2024. RADIOPHARMACEUTICALS: 5.0 mCi of intravenous Tc 99m MAA FINDINGS: No abnormal matched or mismatched ventilation or perfusion defect noted. Symmetric bilateral distribution of radiopharmaceutical on the perfusion imaging. IMPRESSION: Negative for pulmonary embolism.
[2024-08-18 19:58] LABS: HEMATOCRIT 31.4 % (36-48)
[2024-08-18] MEDS: acetaMINOPHEN 325 MG TAB PO PRN (20:08)
[2024-08-18] MEDS: BisaCODYL 10 MG SUPP.RECT RC ONE (20:08)
[2024-08-18] MEDS ORDERED: metoCLOPRAmide 10 MG/2 ML VIAL IVP SCH (21:00)
--- NOTE | 2024-08-18 21:30 | NUR ---
BEDSIDE SWALLOW EVAL COMPLETED. + s/s of aspiration. Recommend pureed solids, moderately thickened liquids, and crushed meds with pureed as tolerated. COMPENSATORY STRATEGIES 1. Sit upright 2. slow oral intake 3. Alt liquids and solids SPRAY II PAINTER reviewed results and recommendations with patient and nurse Eddie. SPRAY II PAINTER educated patient on risk and consequences of aspiration. Speech therapy warranted at this time to address dysphagia. All questions answered. RECOMMENDATIONS: Dysphagia therapy 1-3x week to improve oral and pharyngeal swallow: LTG#1: Pt will tolerate least restrictive diet to meet nutrition/hydration with no s/s of aspiration. LTG#2: Skilled education Pt/family/staff STG#1: Pt will participate in laryngeal elevation/excursion exercises with 90% accuracy. STG#2: Pt will participate in tongue based retraction exercises with 90% accuracy with min asst. STG#3: Pt will participate in oral motor exercises with 90% accuracy with min asst. STG#4 Pt will tolerate a modified diet of pureed solids and honey thick liquids with no overt s/s of aspiration. STG#5 Pt will participate in therapeutic trials of mechanical soft/ground solids and nectar thick liquids with no overt s/s of aspiration. STG#6: Skilled education with pt/family/staff Addendum: 08/18/24 at 2335 by JENNIFER SINCLAIR Amended: Links added.
--- NOTE | 2024-08-18 22:34 | NUR ---
RAD NUCLEAR MEDICINE PATIENT RECEIVED MAA DOSE TODAY GI BLEED WILL HAVE TO BE DONE TILL TUESDAY WE NEED TWO DAYS FOR THE RADIATION TO FILTER OUT THE BODY.
--- NOTE | 2024-08-18 23:29 | PN ---
[facility] PROGRESS NOTE Date Patient Seen: Aug 18, 2024 Time of Visit: 09:00 Supervising Physician: Ang Burgess MD Primary Care Physician: Dr. 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 She responds to questions appropriately. Mental status has improved from yesterday GCS of 14. Continues on Levophed at 0.11 micrograms/kilogram per minute via right upper extremity PICC line. Blood pressures are marginal 98/55 with a map of 69 heart rate in the 60s respiratory rate of 16 saturating 100% with 2 L via nasal cannula and afebrile. T-max was 100.9 in the last 24 hours. She continues on IV fluids with the NS at 125 mL/hour. Urine output 900 mL, balance of + 784ml. She resulted to be negative for influenza a and B and COVID-19. WBCs have increased today to 15.8 H&H 11.8/34.8. Patient on azithromycin and was given a dose of Rocephin in the ED, added Zosyn broad-spectrum. Sodium 135 glucose of 116 mg/dL total calcium of 7.1 magnesium 1.50 covered per protocol procalcitonin of 1.08 consistent with bacterial pneumonia TSH of 6.28 we will resume her levothyroxine. Pt's Niece at the bedside and concern due to pt has a Hx of fracture to Rt ankle that has not healed and apparently she has been seen for this previously but there was no surgery indicated. she is concern due to multiple falls and worried that fracture to Rt ankle has worsened. XR of Rt ankle ordered. As per niece pt has also had weakness to left side since after her fall that cause the rt ankle fracture. She reports it is worsened weakness when she gets hospitalized. We will order and MRI once off pressors. VQ scan negative for PE US BLE venous doppler negative for DVT. REVIEW OF SYSTEMS: General:yes for fever and GBW Neurological: Yes for history of seizures and left-sided weakness. HEENT: No nasal congestion or nasal secretion. Respiratory: Yes for cough, shortness of breath, no wheezing Cardiac: No chest pain or palpitations. Gastrointestinal: No vomiting or diarrhea. Genitourinary: No dysuria hematuria. Skin: No rashes or lesions. Hematological: No bruises or bleeding. Musculoskeletal: Yes for frequent falls, and left-sided weakness. Psychiatric: No depression or panic attacks. PHYSICAL EXAM: GENERAL: alert, weak, awake oriented x 2 HEENT: EOMI, Sclera non icteric, moist mucosa NECK: Supple, no JVD, trachea midline LUNGS: left side Ronchi breath sounds bilaterally. No wheezes HEART: Regular rate and rhythm. Normal S1 and S2, without murmurs ABD: Abdomen soft, nontender. Bowel sounds present EXT: No clubbing cyanosis or edema, Left side weakness, left lip droop (per Niece at bedside left side weakness at least for 1 year) NEURO: Alert and oriented to person, follows commands Vital Signs (last 8hr) Date Time Temp Pulse Resp B/P (MAP) Pulse Ox O2 Delivery O2 Flow Rate FiO2 08/18/24 18:45 56 20 112/62 (79) 98 08/18/24 18:31 51 20 96/35 (55) 95 08/18/24 18:15 56 17 108/39 (62) 94 08/18/24 18:01 59 20 102/64 (77) 95 08/18/24 17:45 59 15 112/61 (78) 95 08/18/24 17:30 67 23 111/67 (82) 95 08/18/24 17:16 74 14 132/28 (62) 95 08/18/24 17:15 74 13 95 08/18/24 17:00 44 16 120/44 (69) 96 08/18/24 16:30 48 16 122/68 (86) 95 08/18/24 16:00 98 Nasal Cannula* 2 28 08/18/24 16:00 55 18 124/52 (76) 98 08/18/24 15:30 55 18 93/84 (87) 99 08/18/24 15:15 59 18 105/68 (80) 99 08/18/24 15:00 98.4 55 18 105/68 (80) 99 LABS: Hematology Labs: Test 08/18/24 19:53 08/18/24 01:59 08/17/24 11:50 Range/Units Hemoglobin 10.8 L 12.0-16.0 g/dL Hematocrit 31.4 L 36-48 % White Blood Count 15.8 #H 4.8-10.8 K/uL Red Blood Count 3.72 L 4.00-5.50 MIL/uL Mean Corpuscular Volume 93.5 79-99 fL Mean Corpuscular Hemoglobin 31.7 27.0-33.0 pg Mean Corpuscular Hemoglobin Concent 33.9 32.0-36.0 g/dL Red Cell Distribution Width 14.4 11.0-15.5 % Platelet Count 87 #L 130-400 K/uL Mean Platelet Volume 10.4 7.5-10.5 fL Immature Granulocyte % (Auto) 0.7 0-1 % Neutrophils (%) (Auto) 84.5 H 40.0-77.0 % Lymphocytes (%) (Auto) 8.8 L 21.0-51.0 % Monocytes (%) (Auto) 5.3 3.0-13.0 % Eosinophils (%) (Auto) 0.4 0.0-8.0 % Basophils (%) (Auto) 0.3 0.0-5.0 % Neutrophils # (Auto) 13.4 H 1.8-7.7 K/uL Lymphocytes # (Auto) 1.4 1.0-4.8 K/uL Monocytes # (Auto) 0.8 0.1-1.0 K/uL Eosinophils # (Auto) 0.07 0.00-0.70 K/uL Basophils # (Auto) 0.04 0.00-0.20 K/uL Absolute Immature Granulocyte (auto 0.11 0-1 K/uL Nucleated Red Blood Cells 0.0 0.0-0.19 % Segmented Neutrophils % 38 L 40-70 % Band Neutrophils % 41 H 0-2 % Lymphocytes % (Manual) 12 L 22-44 % Monocytes % (Manual) 5 2-9 % Metamyelocytes % 4 H 0-0 % Differential Comment MANUAL DIFFERENTIAL White Cell Morphology Comment CONSISTENT W/DIFF Platelet Morphology Comment DECREASED Red Blood Cell Morphology ANISO 1+ Chemistry Labs: Test 08/18/24 01:59 08/17/24 16:09 Range/Units Sodium Level 135 L 136-145 mmol/L Potassium Level 3.7 3.5-5.1 mmol/L Chloride Level 102 101-111 mmol/L Carbon Dioxide Level 23 21-32 mmol/L Blood Urea Nitrogen 10 7-18 mg/dL Creatinine 0.9 0.5-1.0 mg/dL Glomerular Filtration Rate Calc 77 >90 mL/min Random Glucose 116 H 70-105 mg/dL Total Calcium 7.1 L 8.5-10.1 mg/dL Phosphorus Level 3.4 2.5-4.9 mg/dL Magnesium Level 1.50 L 1.80-2.40 mg/dL Total Creatine Kinase 351 H 21-232 U/L Troponin I High Sensitivity 27.6 4-50 ng/L B-Type Natriuretic Peptide 62 0-100 pg/mL Procalcitonin 1.08 H 0.05-0.5 ng/mL Thyroid Stimulating Hormone (TSH) 6.28 H 0.36-3.74 uIU/mL Free Thyroxine (T4) Direct 1.34 0.76-1.46 ng/dL Free Triiodothyronine (T3) pg/mL 1.17 L 2.18-3.98 pg/mL Lactic Acid Level 1.8 0.8-2.5 mmol/L Coagulation Labs: Test 08/18/24 01:59 08/17/24 16:09 Range/Units D-Dimer Quantitative (PE/DVT) 1187 *H 0-500 ng/mL Prothrombin Time 13.4 H 9.6-11.6 SEC Prothromb Time International Ratio 1.30 H 0.85-1.15 Activated Partial Thromboplast Time 41.0 H 26.3-35.5 SEC DIAGNOSTICS / RADIOLOGY RESULTS: [ ] IMAGING REPORT Signed PATIENT: VANITA JON MR#: [id number] : 1970 SEX: F AGE: 53 LOCATION: 2CH ORDER 4 STATUS: ADM IN [facility] REPORT#: [id number] SERVICE 2 REASON: rule out DVT, elevated D-dimer ORDERING PHYSICIAN: KANDI SORIANO PROCEDURE: VENOUS VINAYAK - US VENOUS DOPPLER BILATERAL ULTRASOUND VENOUS DOPPLER, BILATERAL LOWER EXTREMITIES INDICATION: Elevated d-dimer TECHNIQUE: Routine grayscale and color Doppler ultrasound of the bilateral lower extremity veins performed. COMPARISON: No priors. FINDINGS: The demonstrated veins of the bilateral lower extremity including the common femoral vein, femoral vein, and popliteal vein are associated with normal compressibility. Normal respiratory variation was identified. No evidence for echogenic intraluminal thrombus formation. IMPRESSION: No sonographic evidence for deep venous thrombosis within the bilateral lower extremity veins. DICTATED BY: NABEEL WITT MD DATE: 08/18/24744 ELECTRONICALLY SIGNED BY: NABEEL IWTT MD DATE: 08/18/24 0749 IMAGING REPORT Signed PATIENT: VANITA JON MR#: [id number] : 1970 SEX: F AGE: 53 LOCATION: 2CH ORDER 4 STATUS: ADM IN REPORT#: [id number] SERVICE 2 REASON: rule out DVT, elevated D-Dimer ORDERING PHYSICIAN: KANDI SORIANO HEAD OF ICT PROCEDURE: PULM VQ - NM PULMONARY/LUNG VQ SCAN NUCLEAR MEDICINE VENTILATION/PERFUSION SCAN INDICATION: And elevated d-dimer COMPARISON: Most Recent Chest Radiograph from 08/18/2024. RADIOPHARMACEUTICALS: 5.0 mCi of intravenous Tc 99m MAA FINDINGS: No abnormal matched or mismatched ventilation or perfusion defect noted. Symmetric bilateral distribution of radiopharmaceutical on the perfusion imaging. IMPRESSION: Negative for pulmonary embolism. DICTATED BY: NABEEL WITT MD DATE: 08/18/241741 ELECTRONICALLY SIGNED BY: NABEEL WITT MD DATE: 08/18/241744 PLAN Continue Zosyn and Azithromycin Reconcile home meds when available. Start GI soft diet Miralax daily Pt has hx of rt Foot fracture and frequent falls on it - rt foot Xray Ct abdomen and pelvis to rule out Intraabdominal bleed due to 4 point drop in HGB Bleed scan Bowel regimen Maintain Map >65 wean Levophed as possible Star Midodrine 10mg po TID learning services coordinator and assess if APS needed, pt with Hx of multiple falls. Multiple bruising. MRI of the brain without contrast once pt is off pressors. NEURO: Minimize central acting medications as possible. Fall Precautions. Well lighted room through the day and minimize interruptions through the night to prevent acute delirium. PULMONARY: Supplemental 02 as needed Titrate Fio2 to keep Spo2 > or = 90% DuoNebs and CPT as needed IS hourly while awake for pulmonary hygiene Out of bed to chair as tolerated CARDIOVASCULAR: Follow hemodynamics. Titrate vasopressor to keep MAP >65 or systolic blood pressure >95mmHg DRIPS: Levophed LINES: PICC RUE GI & NUTRITION: Continue nutritional support Aspirations precautions Prokinetic agents and laxatives as needed start [place] diet bowel regimen KIDNEYS & ELECTROLYTES: Strict monitoring of intake and output Daily weights Avoid nephrotoxic agents Monitor electrolytes and replace as needed Goal urine output of 30mL/hr or 0.5mL/kg/hr ENDOCRINE: Maintain blood glucose between 100-180 at all times. Insulin sliding scale for blood glucose management INFECTIOUS DISEASE: Trend temperature. Rincon-culture if febrile. Micro: [ ] BC- no growth Urine culture- no growth respiratory culture- pending MRSA - Negative for MRSA Antibiotics: Zosyn and Azithromycin HEMATOLOGY & COAGULATION: Monitor H&H. Keep Hgb > 7 Transfuse 1 unit of PRBC for Hgb < 7 Transfuse 1 pack of platelets of platelets < 20, 000 Watch for any signs and symptoms of bleeding SKIN: Pressure ulcer prevention per facility protocol Rehab: PT/OT Prophylaxis: GI: Protonix DVT: SCDs for now due acute anemia if HH remains stable may resume Lovenox Code Status: Full Resuscitation Disposition: ICU Other: Total patient care time exceeds 35 minutes excluding all procedures. Case was discussed and seen with my supervising physician. The above plan was formulated and agreed upon. MANNIE MCINTOSH Aug 18, 2024 23:29
[2024-08-19] VITALS (35 sets, daily range): BP systolic 98–161; BP diastolic 35–78; PULSE 39–63; RESP 15–33; TEMP 97.1–98.2; O2SAT 97–100
[2024-08-19 04:43] LABS: BASOPHILS # (AUTO) 0.02 K/uL (0.00-0.20); BASOPHILS % (AUTO) 0.2 % (0.0-5.0); EOSINOPHILS # (AUTO) 0.01 K/uL (0.00-0.70); EOSINOPHILS % (AUTO) 0.1 % (0.0-8.0); HEMATOCRIT 31.6 % (36-48); IMMATURE GRANULOCYTE ABSOLUTE 0.08 K/uL (0-1); LYMPHOCYTES # (AUTO) 2.4 K/uL (1.0-4.8); LYMPHOCYTES % (AUTO) 19.7 % (21.0-51.0); MEAN CORPUSCULAR HEMOGLOBIN 31.9 pg (27.0-33.0); MEAN CORPUSCULAR HGB CONC 33.2 g/dL (32.0-36.0); MONOCYTES # (AUTO) 0.5 K/uL (0.1-1.0); MONOCYTES % (AUTO) 4.2 % (3.0-13.0); NEUTROPHILS % (AUTO) 75.1 % (40.0-77.0); PLATELET COUNT (AUTO) 76 K/uL (130-400); RED BLOOD CELL COUNT(AUTO) 3.29 MIL/uL (4.00-5.50); RED CELL DISTRIBUTION WIDTH 14.9 % (11.0-15.5); WHITE BLOOD COUNT (AUTO) 11.9 K/uL (4.8-10.8)
[2024-08-19 05:02] LABS: ALBUMIN 1.5 g/dL (3.5-5.0); BILIRUBIN,TOTAL 0.4 mg/dL (0.2-1.0); CREATININE 0.6 mg/dL (0.5-1.0); MAGNESIUM 2.1 mg/dL (1.80-2.40); POTASSIUM 3.6 mmol/L (3.5-5.1); TOTAL PROTEIN, SERUM 5.6 g/dL (6.0-8.3)
[2024-08-19] MEDS ORDERED: levoTHYROxine 25 MCG TABLET PO SCH (06:30)
[2024-08-19] MEDS: levoTHYROxine 50 MCG TABLET PO SCH (07:19)
[2024-08-19] MEDS: PANTOPrazole 40 MG/VIAL IVP SCH (08:29)
[2024-08-19] MEDS: MULTIVIT CALC MINS PO SCH (09:00)
[2024-08-19] MEDS: FOLIC PO SCH (09:00)
[2024-08-19] MEDS: POTASSIUM CHLORIDE PO SCH (09:00)
[2024-08-19] MEDS ORDERED: LEVETIRACETAM PO SCH (09:00)
[2024-08-19] MEDS: IRON PO SCH (09:00)
[2024-08-19] MEDS: polyETHYLene GLYCol 3350 17 GM POWD.PACK PO SCH (09:00)
--- NOTE | 2024-08-19 10:25 | PN ---
[facility] PROGRESS NOTE Date Patient Seen: Aug 19, 2024 Time of Visit: 10:23 Supervising Physician: Ang Burgess MD Primary Care Physician: Dr. 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 POA, resolved Left lower Lobe Bacterial Pneumonia POA Leukocytosis Acute Normocytic anemia, not POA Acute Thrombocytopenia, resolving Electrolyte derangement ( Hyponatremia, Hypocalcemia, Hypomagnesemia) Recurrent seizure disorder Medial malleolar fracture, acute and lateral fibula fracture, proximal, that is chronic- boot ordered by ortho Moderate Hypoalbuminemia Mild IDD Hypothyroidism Organic affective disorder with psychosis Osteoporosis Mood disorder Depression GERD Hypothyroidism Bruising around left orbit and lower extremities HX of RT ankle Fracture, Left sided weakness (Unknown if previous CVA) INTERVAL HISTORY: No Major overnight events. Patient is off pressors. Patient is awake alert and oriented times 2-3. She reports feeling much better. White count has improved 11.9 today from yesterday which was 15.8 H&H stable 10.5/31.6. Platelet count still slightly decreased 76 K. chemistry unremarkable similar to yesterday procalcitonin trending down 0.75. Home meds have been resumed.Right ankle x-ray shows nondisplaced medial malleolus fracture. We will consult ortho for eval and recs. To maintain neurovascular checks q.shift. Otherwise patient may be downgraded to medical floor. Further need for ICU status. REVIEW OF SYSTEMS: General:yes for fever and GBW Neurological: Yes for history of seizures and left-sided weakness. HEENT: No nasal congestion or nasal secretion. Respiratory: Yes for cough, shortness of breath, no wheezing Cardiac: No chest pain or palpitations. Gastrointestinal: No vomiting or diarrhea. Genitourinary: No dysuria hematuria. Skin: No rashes or lesions. Hematological: No bruises or bleeding. Musculoskeletal: Yes for frequent falls, and left-sided weakness. Psychiatric: No depression or panic attacks. PHYSICAL EXAM: GENERAL: alert, weak, awake oriented x 2 HEENT: EOMI, Sclera non icteric, moist mucosa NECK: Supple, no JVD, trachea midline LUNGS: left side Ronchi breath sounds bilaterally. No wheezes HEART: Regular rate and rhythm. Normal S1 and S2, without murmurs ABD: Abdomen soft, nontender. Bowel sounds present EXT: No clubbing cyanosis or edema, Left side weakness, left lip droop (per Niece at bedside left side weakness at least for 1 year) NEURO: Alert and oriented to person, follows commands Vital Signs (last 8hr) Date Time Temp Pulse Resp B/P (MAP) Pulse Ox O2 Delivery O2 Flow Rate FiO2 08/19/24 07:00 45 15 120/41 (67) 100 08/19/24 06:45 45 17 120/65 (83) 100 08/19/24 06:30 49 19 161/78 (105) 100 08/19/24 06:09 48 15 30 08/19/24 06:00 61 16 134/69 (90) 100 08/19/24 05:30 63 19 100/56 (71) 100 08/19/24 05:00 47 23 122/65 (84) 100 08/19/24 04:30 50 24 143/72 (95) 100 08/19/24 04:15 43 19 125/51 (75) 99 08/19/24 04:00 42 21 114/62 (79) 99 08/19/24 04:00 98 CPAP+ 30 08/19/24 03:54 18 30 08/19/24 03:45 45 15 105/57 (73) 100 08/19/24 03:30 49 15 119/58 (78) 100 08/19/24 03:15 45 21 99/46 (63) 99 08/19/24 03:00 54 17 104/66 (79) 99 08/19/24 02:45 46 22 108/40 (62) 99 08/19/24 02:30 48 22 109/65 (80) 99 LABS: Hematology Labs: Test 08/19/24 04:25 08/17/24 11:50 Range/Units White Blood Count 11.9 H 4.8-10.8 K/uL Red Blood Count 3.29 L 4.00-5.50 MIL/uL Hemoglobin 10.5 L 12.0-16.0 g/dL Hematocrit 31.6 L 36-48 % Mean Corpuscular Volume 96.0 79-99 fL Mean Corpuscular Hemoglobin 31.9 27.0-33.0 pg Mean Corpuscular Hemoglobin Concent 33.2 32.0-36.0 g/dL Red Cell Distribution Width 14.9 11.0-15.5 % Platelet Count 76 L 130-400 K/uL Mean Platelet Volume 11.1 H 7.5-10.5 fL Immature Granulocyte % (Auto) 0.7 0-1 % Neutrophils (%) (Auto) 75.1 40.0-77.0 % Lymphocytes (%) (Auto) 19.7 L 21.0-51.0 % Monocytes (%) (Auto) 4.2 3.0-13.0 % Eosinophils (%) (Auto) 0.1 0.0-8.0 % Basophils (%) (Auto) 0.2 0.0-5.0 % Neutrophils # (Auto) 9.0 H 1.8-7.7 K/uL Lymphocytes # (Auto) 2.4 1.0-4.8 K/uL Monocytes # (Auto) 0.5 0.1-1.0 K/uL Eosinophils # (Auto) 0.01 0.00-0.70 K/uL Basophils # (Auto) 0.02 0.00-0.20 K/uL Absolute Immature Granulocyte (auto 0.08 0-1 K/uL Nucleated Red Blood Cells 0.0 0.0-0.19 % Segmented Neutrophils % 38 L 40-70 % Band Neutrophils % 41 H 0-2 % Lymphocytes % (Manual) 12 L 22-44 % Monocytes % (Manual) 5 2-9 % Metamyelocytes % 4 H 0-0 % Differential Comment MANUAL DIFFERENTIAL White Cell Morphology Comment CONSISTENT W/DIFF Platelet Morphology Comment DECREASED Red Blood Cell Morphology ANISO 1+ Chemistry Labs: Test 08/19/24 04:25 08/18/24 01:59 08/17/24 16:09 Range/Units Sodium Level 138 136-145 mmol/L Potassium Level 3.6 3.5-5.1 mmol/L Chloride Level 107 101-111 mmol/L Carbon Dioxide Level 24 21-32 mmol/L Blood Urea Nitrogen 8 7-18 mg/dL Creatinine 0.6 0.5-1.0 mg/dL Glomerular Filtration Rate Calc 109 >90 mL/min Random Glucose 104 70-105 mg/dL Total Calcium 7.1 L 8.5-10.1 mg/dL Magnesium Level 2.10 1.80-2.40 mg/dL Total Bilirubin 0.4 0.2-1.0 mg/dL Aspartate Amino Transf (AST/SGOT) 41 H 10-37 U/L Alanine Aminotransferase (ALT/SGPT) 45 12-78 U/L Alkaline Phosphatase 63 50-136 U/L Total Protein 5.6 L 6.0-8.3 g/dL Albumin 1.5 L 3.5-5.0 g/dL Procalcitonin 0.75 H 0.05-0.5 ng/mL Phosphorus Level 3.4 2.5-4.9 mg/dL Total Creatine Kinase 351 H 21-232 U/L Troponin I High Sensitivity 27.6 4-50 ng/L B-Type Natriuretic Peptide 62 0-100 pg/mL Thyroid Stimulating Hormone (TSH) 6.28 H 0.36-3.74 uIU/mL Free Thyroxine (T4) Direct 1.34 0.76-1.46 ng/dL Free Triiodothyronine (T3) pg/mL 1.17 L 2.18-3.98 pg/mL Lactic Acid Level 1.8 0.8-2.5 mmol/L Coagulation Labs: Test 08/18/24 01:59 08/17/24 16:09 Range/Units D-Dimer Quantitative (PE/DVT) 1187 *H 0-500 ng/mL Prothrombin Time 13.4 H 9.6-11.6 SEC Prothromb Time International Ratio 1.30 H 0.85-1.15 Activated Partial Thromboplast Time 41.0 H 26.3-35.5 SEC DIAGNOSTICS / RADIOLOGY RESULTS: [ ] IMAGING REPORT Signed PATIENT: VANITA JON MR#: [id number] : 1970 SEX: F AGE: 53 LOCATION: 2C ORDER 44 STATUS: ADM IN REPORT#: [id number] SERVICE 43 REASON: S/P VQSCAN ORDERING PHYSICIAN: MANNIE MCINTOSH PROCEDURE: CXR1VW - CHEST 1VW PORTABLE CHEST RADIOGRAPH INDICATION: S/P VQSCAN COMPARISON: 08/17/2024 FINDINGS: traffic monitor specialist leads overlie the field of view. Stable right PICC. Heart size is normal. The pulmonary vascularity and kurt appear normal. Left lower lobe linear opacities, some of which may represent scarring. No significant pleural effusion noted. No pneumothorax detected. IMPRESSION: Left lower lobe opacities, some of which may represent scarring. Follow-up chest radiograph is advised in order to ensure resolution. DICTATED BY: NABEEL WITT MD DATE: 08/18/241722 ELECTRONICALLY SIGNED BY: NABEEL WITT MD DATE: 08/18/241726 Signed PATIENT: VANITA JON MR#: [id number] : 1970 SEX: F AGE: 53 LOCATION: 2CH ORDER 6 STATUS: ADM IN REPORT#: [id number] SERVICE REASON: hx of fracture and pain ORDERING PHYSICIAN: MANNIE MCINTOSH PROCEDURE: [id number] - ANKLE COMP 3VWS RT RIGHT ANKLE RADIOGRAPHS - 3 VIEWS INDICATION: Fracture history, pain COMPARISON: None FINDINGS: AP, lateral, and suboptimal oblique views. Nondisplaced medial malleolus fracture. Suboptimal oblique view limits detailed assessment of the lateral malleolus. Cortical irregularity along the anterolateral margin of the lateral malleolus may represent spurring. The talar dome is intact. Ankle mortise and tibial plafond are well maintained. No significant joint effusion is present. No radiopaque foreign body noted. IMPRESSION: Nondisplaced medial malleolus fracture. Suboptimal oblique view limits detailed assessment of the lateral malleolus. DICTATED BY: NABEEL WITT MD DATE: 08/18/24 123 ELECTRONICALLY SIGNED BY: NABEEL WITT MD DATE: 08/18/241236 PLAN Down grade from ICU to MS continue seizure precautions Continue Zosyn and Azithromycin Start GI soft diet and advance as tolerated Miralax daily Place boot to rt Lower extremity as recommended by ortho DR Hamm. Bleed scan due to 4 point drop hgb initially and recommended per CT abdomen. Bowel regimen Maintain Map >65 wean Levophed as possible Star Midodrine 10mg po TID administrative services assistant and assess if APS needed, pt with Hx of multiple falls. Multiple bruising. MRI of the brain without contrast once pt is off pressors due to left side weakness. CM fo DC planning pt would benefit from SNF for rehab and IV abxs. NEURO: Minimize central acting medications as possible. Fall Precautions. Well lighted room through the day and minimize interruptions through the night to prevent acute delirium. PULMONARY: Supplemental 02 as needed Titrate Fio2 to keep Spo2 > or = 90% DuoNebs and CPT as needed IS hourly while awake for pulmonary hygiene Out of bed to chair as tolerated CARDIOVASCULAR: Follow hemodynamics. Titrate vasopressor to keep MAP >65 or systolic blood pressure >95mmHg DRIPS: none LINES: PICC RUE GI & NUTRITION: Continue nutritional support Aspirations precautions Prokinetic agents and laxatives as needed start [place] diet bowel regimen KIDNEYS & ELECTROLYTES: Strict monitoring of intake and output Daily weights Avoid nephrotoxic agents Monitor electrolytes and replace as needed Goal urine output of 30mL/hr or 0.5mL/kg/hr ENDOCRINE: Maintain blood glucose between 100-180 at all times. Insulin sliding scale for blood glucose management INFECTIOUS DISEASE: Trend temperature. Rincon-culture if febrile. Micro: [ ] BC- no growth Urine culture- no growth respiratory culture- pending MRSA - Negative for MRSA Antibiotics: Zosyn and Azithromycin HEMATOLOGY & COAGULATION: Monitor H&H. Keep Hgb > 7 Transfuse 1 unit of PRBC for Hgb < 7 Transfuse 1 pack of platelets of platelets < 20, 000 Watch for any signs and symptoms of bleeding SKIN: Pressure ulcer prevention per facility protocol Rehab: PT/OT Prophylaxis: GI: Protonix DVT: SCDs for now due acute anemia if HH remains stable may resume Lovenox Code Status: Full Resuscitation Disposition: ICU Other: Total patient care time exceeds 35 minutes excluding all procedures. Case was discussed and seen with my supervising physician. The above plan was formulated and agreed upon. MANNIE MCINTOSH Aug 19, 2024 10:25
[2024-08-19] MEDS: miDODRine HCL 5 MG TABLET PO SCH (11:17)
[2024-08-19] MEDS: divALPRoex SOdium 250 MG TAB PO SCH (11:17)
[2024-08-19] MEDS: LUBIPROSTONE 24 MCG CAP PO SCH (11:18)
[2024-08-19] MEDS: [UNRECOGNIZED DRUG - OTHER] PO SCH (11:40)
--- NOTE | 2024-08-19 14:30 | NUR ---
TRANSFER Transferred by bed to room 302. Bedside report given to HUMBLE Head.
--- NOTE | 2024-08-19 17:09 | HMCIMG ---
RIGHT TIBIA AND FIBULA RADIOGRAPHS - 2 VIEWS INDICATION: Pain COMPARISON: None. FINDINGS: AP and lateral views. Nondisplaced medial malleolus fracture. Chronic proximal right fibular shaft fracture deformity. No radiopaque foreign body noted. IMPRESSION: Nondisplaced medial malleolus fracture.
--- NOTE | 2024-08-19 17:10 | NUR ---
INITIAL Met w pt at the bedside and niece Tiff Roland [phone] via phone to discuss dcp. Prior to admission pt was living @ [facility]. Per Tiff pt has been living there for years. Pt was recently requiring assistance w ambulation and ADLs dt an ankle fx. Pt does not own any DME but [facility] is able to loan pt DME if needed. PCP is Dr Corey. Preferred pharmacy is [facility] Discussed w pt Md order/recommendation for poss SNF @ dc. She mentions that she prefers to wait until her niece comes by to discuss first. Pt mentions that she feels safe at [facility]. Per niyanira pt has had several falls. Tiff mentions that she assists pt w medical decision making. Pt/Niece Tiff to contact CM when avail to discuss SNF/DCP. Addendum: 08/19/24 at 1720 by BALBIR CARDOSO Amended: Links added.
--- NOTE | 2024-08-19 18:06 | NUR ---
DR. RODRIGUEZ IS CALLED AND MAKE AWARE OF TIBIA AND FIBULA RESULTS. NO ORDERS RECEIVED.
[2024-08-19] MEDS: citaLOPram 20 MG TABLET PO SCH (20:16)
[2024-08-19] MEDS: rispERIdone 1 MG TABLET PO SCH (20:16)
--- NOTE | 2024-08-19 20:20 | NUR ---
MEDS SHIFT ASSESSMENT DONE, PLEASE REFER TO CHART. RE-POSITIONED COMFORTABLY IN BED WITH HOB ELEVATED. KEPT ON O2 AT 2LPM VIA NC. DUE MEDS ADMINISTERED, TOLERATED WELL. FLUSHED ALL 3 PORTS OF PICC LISA AND ALL PORTS FLUSHES WELL BUT ONLY RED PORT DRAWS BLOOD. DRESSING CHANGED ON PICC LINE SITE USING ASEPTIC TECHNIQUE. WILL KEEP ON CLOSE WATCH.
--- NOTE | 2024-08-19 21:26 | CONS ---
TIME: At approximately 1:00 p.m. REASON FOR CONSULT: Right ankle fracture. HISTORY: This is a 53-year-old female who has a seizure disorder, came into the Emergency Room, was hypotensive and needed to go on pressors, went to the ICU and I was asked to see her for a right ankle fracture. She was admitted and found to have an ankle fracture during workup after she was responsive. PRIOR MEDICAL HISTORY: Long list of psychologic, osteoporosis, depression, GERD, hypothyroidism, altered mental status. SOCIAL HISTORY: She lives in a alf. She does not drink, smoke or do drugs. ALLERGIES: She has no known drug allergies. MEDICATIONS: In the chart, they were reviewed. PAST SURGICAL HISTORY: None. PHYSICAL EXAMINATION: She is awake, alert. She is communicative. Her affective disorder is evident. She does not communicate very well, but she does communicate. She complains of pain in that right ankle. She is tender over the medial malleolus. She is nontender over the lateral malleolus. She is slightly tender when I squeeze proximally in the mid substance of her calf area from a medial, lateral standpoint directly over her fibula. Her skin is otherwise intact. Sensation intact. She has no pain in the knee. X-RAYS: X-rays available to me at the time of the consult were just an ankle showing a minimal-displaced medial malleolar fracture. I then obtained an AP and lateral of the tib-fib showing an old proximal fibula fracture with abundant amount of callus present. IMPRESSION: Medial malleolar fracture, acute and lateral fibula fracture, proximal, that is chronic. PLAN: She will be in a boot. We can put her in a cast if necessary, but a boot would suffice and have her be weightbearing as tolerated in the boot and she can come back and see me in 1-2 weeks. If cast is better for her at her alf, we will put her in a cast, that is up to her and her power of assistant county attorney. We will discuss those options when she returns to clinic. TID: [id number] RECEIPT: [id number]
[2024-08-20] VITALS (7 sets, daily range): BP systolic 107–143; BP diastolic 52–75; PULSE 48–64; RESP 13–24; TEMP 97.8–98.2; O2SAT 98
--- NOTE | 2024-08-20 01:20 | NUR ---
SPLINT CHARGE NURSE MADE AWARE OF PENDING SPLINT APPLICATION TO [facility]. SET UP PERSON MADE AWARE. ER WAS CALLED BY CHARGE FOR ANY STAFF AVAILABLE FOR SPLINT APPLICATION. SOURCING MANAGER ART CAME INTO ROOM WITH SUPPLIES FOR SPLINT APPLICATION. PCP VIOLET ASSISTED TECH. PT TOLERATED SPLINT APPLICATION WELL.
[2024-08-20 04:03] LABS: ALBUMIN 1.5 g/dL (3.5-5.0); BILIRUBIN,TOTAL 0.4 mg/dL (0.2-1.0); CREATININE 0.5 mg/dL (0.5-1.0); TOTAL PROTEIN, SERUM 5.4 g/dL (6.0-8.3)
[2024-08-20 04:51] LABS: BASOPHILS # (AUTO) 0.02 K/uL (0.00-0.20); BASOPHILS % (AUTO) 0.3 % (0.0-5.0); EOSINOPHILS # (AUTO) 0.04 K/uL (0.00-0.70); EOSINOPHILS % (AUTO) 0.5 % (0.0-8.0); HEMATOCRIT 30.8 % (36-48); IMMATURE GRANULOCYTE ABSOLUTE 0.09 K/uL (0-1); LYMPHOCYTES # (AUTO) 2.5 K/uL (1.0-4.8); MEAN CORPUSCULAR HEMOGLOBIN 32.4 pg (27.0-33.0); MEAN CORPUSCULAR HGB CONC 33.8 g/dL (32.0-36.0); MONOCYTES # (AUTO) 0.4 K/uL (0.1-1.0); MONOCYTES % (AUTO) 5.6 % (3.0-13.0); NEUTROPHILS # (AUTO) 4.6 K/uL (1.8-7.7); NEUTROPHILS % (AUTO) 60.4 % (40.0-77.0); PLATELET COUNT (AUTO) 75 K/uL (130-400); RED BLOOD CELL COUNT(AUTO) 3.21 MIL/uL (4.00-5.50); RED CELL DISTRIBUTION WIDTH 14.9 % (11.0-15.5); WHITE BLOOD COUNT (AUTO) 7.7 K/uL (4.8-10.8)
--- NOTE | 2024-08-20 06:29 | NUR ---
MEDS PT'S BIPAP KEEPS ALARMING DESPITE SEVERAL ATTEMPTS TO FIX IT. RT CALLED THAT BIPAP WILL BE TURNED OFF AND PT WILL BE PLACED BACK ON O2 AT 2LPM VIA NC. DUE MEDS GIVEN, TOLERATED WELL. KEPT WARM AND DRY. FOR MORE CARE.
--- NOTE | 2024-08-20 14:07 | PN ---
[facility] PROGRESS NOTE Date Patient Seen: Aug 20, 2024 Time of Visit: 14:04 Supervising Physician: Dr. John Perez Primary Care Physician: Dr. 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, resolved Left lower Lobe Bacterial Pneumonia POA Leukocytosis Acute Normocytic anemia, not POA Acute Thrombocytopenia, resolving Electrolyte derangement ( Hyponatremia, Hypocalcemia, Hypomagnesemia) Recurrent seizure disorder Medial malleolar fracture, acute and lateral fibula fracture, proximal, that is chronic- boot ordered by ortho Moderate Hypoalbuminemia Mild IDD Hypothyroidism Organic affective disorder with psychosis Osteoporosis Mood disorder Depression GERD Hypothyroidism Bruising around left orbit and lower extremities HX of RT ankle Fracture, Left sided weakness (Unknown if previous CVA) INTERVAL HISTORY: Patient evaluated at bedside, much more awake and alert today, able to answer questions correctly. Patient was on room air at this time, her only complaint at this moment as upper airway congestion, we will start patient on nebulizer treatments and guaifenesin. Patient has been seen by ortho for evaluation of the medial malleolar fracture, recommendations to continue in the boot at this time and follow up as outpatient for possible casting if necessary. Patient's care home stated they have the ability to support this treatment plan. Pending conversation POA in order to determine the patient's disposition. Patient quin red to discharge with seven days of Levaquin p.o. once disposition is discussed REVIEW OF SYSTEMS: General:yes for fever and GBW Neurological: Yes for history of seizures and left-sided weakness. HEENT: No nasal congestion or nasal secretion. Respiratory: Yes for cough, shortness of breath, no wheezing Cardiac: No chest pain or palpitations. Gastrointestinal: No vomiting or diarrhea. Genitourinary: No dysuria hematuria. Skin: No rashes or lesions. Hematological: No bruises or bleeding. Musculoskeletal: Yes for frequent falls, and left-sided weakness. Psychiatric: No depression or panic attacks. PHYSICAL EXAM: GENERAL: alert, weak, awake oriented x 2 HEENT: EOMI, Sclera non icteric, moist mucosa NECK: Supple, no JVD, trachea midline LUNGS: left side Ronchi breath sounds bilaterally. No wheezes HEART: Regular rate and rhythm. Normal S1 and S2, without murmurs ABD: Abdomen soft, nontender. Bowel sounds present EXT: No clubbing cyanosis or edema, Left side weakness, left lip droop (per Niece at bedside left side weakness at least for 1 year) NEURO: Alert and oriented to person, follows commands Vital Signs (last 8hr) Date Time Temp Pulse Resp B/P (MAP) Pulse Ox O2 Delivery O2 Flow Rate FiO2 08/20/24 12:00 98.1 56 16 123/75 98 Room Air 21 08/20/24 08:00 98.1 51 16 113/55 99 Room Air 21 08/20/24 07:04 54 16 N/Cannula Low lpm 2.0 28 LABS: Hematology Labs: Test 08/20/24 04:07 Range/Units White Blood Count 7.7 # 4.8-10.8 K/uL Red Blood Count 3.21 L 4.00-5.50 MIL/uL Hemoglobin 10.4 L 12.0-16.0 g/dL Hematocrit 30.8 L 36-48 % Mean Corpuscular Volume 96.0 79-99 fL Mean Corpuscular Hemoglobin 32.4 27.0-33.0 pg Mean Corpuscular Hemoglobin Concent 33.8 32.0-36.0 g/dL Red Cell Distribution Width 14.9 11.0-15.5 % Platelet Count 75 L 130-400 K/uL Mean Platelet Volume 11.8 H 7.5-10.5 fL Immature Granulocyte % (Auto) 1.2 H 0-1 % Neutrophils (%) (Auto) 60.4 40.0-77.0 % Lymphocytes (%) (Auto) 32.0 21.0-51.0 % Monocytes (%) (Auto) 5.6 3.0-13.0 % Eosinophils (%) (Auto) 0.5 0.0-8.0 % Basophils (%) (Auto) 0.3 0.0-5.0 % Neutrophils # (Auto) 4.6 1.8-7.7 K/uL Lymphocytes # (Auto) 2.5 1.0-4.8 K/uL Monocytes # (Auto) 0.4 0.1-1.0 K/uL Eosinophils # (Auto) 0.04 0.00-0.70 K/uL Basophils # (Auto) 0.02 0.00-0.20 K/uL Absolute Immature Granulocyte (auto 0.09 0-1 K/uL Nucleated Red Blood Cells 0.0 0.0-0.19 % Chemistry Labs: Test 08/20/24 03:29 08/19/24 04:25 Range/Units Sodium Level 139 136-145 mmol/L Potassium Level 4.0 3.5-5.1 mmol/L Chloride Level 109 101-111 mmol/L Carbon Dioxide Level 24 21-32 mmol/L Blood Urea Nitrogen 8 7-18 mg/dL Creatinine 0.5 0.5-1.0 mg/dL Glomerular Filtration Rate Calc 113 >90 mL/min Random Glucose 77 70-105 mg/dL Total Calcium 7.3 L 8.5-10.1 mg/dL Total Bilirubin 0.4 0.2-1.0 mg/dL Aspartate Amino Transf (AST/SGOT) 61 H 10-37 U/L Alanine Aminotransferase (ALT/SGPT) 50 12-78 U/L Alkaline Phosphatase 62 50-136 U/L Total Protein 5.4 L 6.0-8.3 g/dL Albumin 1.5 L 3.5-5.0 g/dL Magnesium Level 2.10 1.80-2.40 mg/dL Procalcitonin 0.75 H 0.05-0.5 ng/mL DIAGNOSTICS / RADIOLOGY RESULTS: [ ] PLAN NEURO: Minimize central acting medications as possible. Maintain fall precautions, adequate lighting during the day PULMONARY: Supplemental 02 as needed. Maintain aspiration precautions at all times CARDIOVASCULAR: Follow hemodynamics. Vital signs per facility protocol GI & NUTRITION: Continue with nutritional support. Continue stool softeners and laxatives as needed. KIDNEYS & ELECTROLYTES: Strict monitoring of intake, output and overall fluid balance. Avoid nephrotoxic medications to the extent possible. Medications to be dosed according to renal function. Monitor electrolytes and replace as needed ENDOCRINE: Maintain blood glucose between 100-180 at all times. Hypoglycemia protocol in place INFECTIOUS DISEASE: Trend temperature, WBC and procalcitonin level Follow cultures, deescalate antibiotics as soon as possible. Panculture if new onset fever ONCOLOGY/HEMATOLOGY/COAGULATION: Monitor for s/s of bleeding Monitor hemoglobin, coagulation studies as needed SKIN: Pressure ulcer prevention per facility protocol Specialty mattress ORTHO/REHAB: Continue PT/OT Prophylaxis: Continue GI and DVT prophylaxis Code Status: Full Resuscitation Disposition: TBD Other: Total patient care time exceeds 35 minutes excluding all procedures. ANTONELLA OTERO Aug 20, 2024 14:07
--- NOTE | 2024-08-20 15:11 | HMCIMG ---
MR BRAIN WO CON HISTORY: Bleeding COMPARISON: None TECHNIQUE: MRI of the brain was performed utilizing multiple pulse sequences in axial, coronal and sagittal planes. Patient was not given contrast through intravenous route. FINDINGS: The ventricles and extraventricular CSF spaces are dilated consistent with cerebral atrophy. Nonspecific white matter changes are seen. There is no midline shift, mass effect or herniation. No subacute hemorrhage is seen. No MR evidence of acute infarct is seen in the diffusion weighted images. Cerebellar tonsils are in normal position. No evidence of mucoperiosteal thickening is seen of the visualized paranasal sinuses. No MR evidence of a mass lesion is seen in this noncontrast study. IMPRESSION: 1. No MR evidence of acute infarct is seen in the diffusion weighted images. Atrophy with white matter changes.
--- NOTE | 2024-08-20 15:23 | NUR ---
Nutrition consult per eval Reviewed labs, notes, and medications. Pt with hx of seizure disorder, hx of psychosis, AMS POA, off pressors, on regular + puree + honey thick, miralax, anti-psychotic, IV abx, Iv fluids, Ca 7.3 (L), elevated AST 61 per chart review. Wt via bed scale, 100%PO intake, last BM 08/19/24, no edema, mild muscle and fat loss, no ulcers noted, 1216 ml balance 08/19/24 per nursing. Consider b-1 labs per AMS POA. Pt with non-severe PCM, Supplement thiamin 100 mg/day for 5-7 days + MVI QD for at least 10 days. Recommendations -Provide regular diet + magic cup BID w/ dinner and lunch -Texture per DIRECTOR COMMERCIAL SALES -Monitor PO intake -Encourage PO intake as able -Monitor BM -If no BM >3 days consider stool softener -Monitor electrolytes -Replenish electrolytes per protocol -Monitor wts -Reweigh as able -Order Vit D, vit b-12 labs to rule out deficiencies -Provide b-complex QD -Recommend Pt to follow up with PCP -Monitor goals of care RD to follow + available for consult per protocol Addendum: 08/20/24 at [address] Amended: Links added.
--- NOTE | 2024-08-20 16:27 | NUR ---
Discharge Planning: Spoke to patient's niece Tiff Roland regarding possible SNF placement. States patient wants to go back to her nursing home, niece is in agreement. Patient's nurse Lilo nickerson Pt. is currently having an MRI of the brain and not present in room.
--- NOTE | 2024-08-20 17:06 | HMCIMG ---
NM GI BLOOD LOSS IMAG REASON: suspected gi bleed. COMPARISON: None TECHNIQUE: GI bleeding scan was performed with 27 mCi of technetium R please see through intravenous route. FINDINGS: No scintigraphic evidence of acute GI bleed is seen. IMPRESSION: No scintigraphic evidence of acute GI bleed is seen.
[2024-08-20] MEDS ORDERED: COMPOUND IV MISC 1 EACH IVSOLN MISC PRN (21:30)
[2024-08-20] MEDS ORDERED: COMPOUND IV REFRIGERATED 1 EACH IVSOLN MISC PRN (21:30)
[2024-08-20] MEDS: leveTIRACEtam 500 MG/5 ML SD V 1,000 MG in 0.9%NACL 100ML 100 ML IV SCH (23:14)
[2024-08-21 00:07] VITALS: BP 131/72; PULSE 62; RESP 18; TEMP 97.6
[2024-08-21 04:00] VITALS: BP 138/76; PULSE 54; RESP 18; TEMP 97.3
[2024-08-21 05:16] LABS: BASOPHILS # (AUTO) 0.04 K/uL (0.00-0.20); BASOPHILS % (AUTO) 0.6 % (0.0-5.0); EOSINOPHILS # (AUTO) 0.09 K/uL (0.00-0.70); EOSINOPHILS % (AUTO) 1.4 % (0.0-8.0); HEMATOCRIT 32.2 % (36-48); IMMATURE GRANULOCYTE ABSOLUTE 0.21 K/uL (0-1); LYMPHOCYTES # (AUTO) 2.9 K/uL (1.0-4.8); LYMPHOCYTES % (AUTO) 43.4 % (21.0-51.0); MEAN CORPUSCULAR HEMOGLOBIN 32.3 pg (27.0-33.0); MEAN CORPUSCULAR HGB CONC 33.5 g/dL (32.0-36.0); MEAN CORPUSCULAR VOLUME 96.4 fL (79-99); MONOCYTES # (AUTO) 0.4 K/uL (0.1-1.0); MONOCYTES % (AUTO) 6.6 % (3.0-13.0); NEUTROPHILS # (AUTO) 2.9 K/uL (1.8-7.7); NEUTROPHILS % (AUTO) 44.8 % (40.0-77.0); NUCLEATED RED BLOOD CELLS 0.3 % (0.0-0.19); PLATELET COUNT (AUTO) 112 K/uL (130-400); RED BLOOD CELL COUNT(AUTO) 3.34 MIL/uL (4.00-5.50); RED CELL DISTRIBUTION WIDTH 14.6 % (11.0-15.5); WHITE BLOOD COUNT (AUTO) 6.6 K/uL (4.8-10.8)
[2024-08-21 05:57] LABS: ALBUMIN 1.6 g/dL (3.5-5.0); BILIRUBIN,TOTAL 0.3 mg/dL (0.2-1.0); CREATININE 0.4 mg/dL (0.5-1.0); POTASSIUM 3.5 mmol/L (3.5-5.1); TOTAL PROTEIN, SERUM 5.5 g/dL (6.0-8.3)
[2024-08-21 06:15] LABS: EOSINOPHILS % (MANUAL) 1 % (1-6); LYMPHOCYTES % (MANUAL) 39 % (22-44); MONOCYTES % (MANUAL) 1 % (2-9); REACTIVE LYMPHOCYTES 3 % (0-0); SEGMENTED NEUTROPHILS % 56 % (40-70); TOTAL CELLS COUNTED 100
[2024-08-21 06:16] LABS: MAN.DIFF COMMENT-IMPRESSION MANUAL DIFFERENTIAL; PLATELET MORPHOLOGY COMMENT SLIGHTLY DECREASED; WBC MORPHOLOGY NORMAL
[2024-08-21 08:00] VITALS: BP 134/72; PULSE 46; RESP 16; TEMP 97.6
--- NOTE | 2024-08-21 10:08 | NUR ---
APS Naman spoke to niece who was requesting assist with MPOA for her aunt(pt) who is MR, and living in a longterm. Niece states that pt's father instructed longterm to call niece Tiff Roland [phone] for any issues related to pt. Per niece, pt's mother and siblings still living but they are no involved in pt's life at all. Discussed guardianship for pt, and capacity for pt to be able to sign legal documents. Niece given # for APS for possible assistance with this matter. Niece voiced understanding and states she will call for assistance or referral for who can assist.
[2024-08-21] MEDS: IpraTROPium 0.5 MG/2.5 ML INH IH SCH (11:39)
[2024-08-21 11:41] VITALS: PULSE 82; RESP 18; O2SAT 96
[2024-08-21 12:00] VITALS: BP 129/71; PULSE 44; RESP 18; TEMP 97.4
[2024-08-21] MEDS ORDERED: LEVO75TA4 PO (14:38)
[2024-08-21] MEDS ORDERED: IPRNEB IH (14:38)
[2024-08-21] MEDS ORDERED: BUDE0.5A3 IH (14:38)
[2024-08-21] MEDS ORDERED: AMOX1TAB16 PO (14:38)
--- NOTE | 2024-08-21 15:53 | DS ---
[facility] DISCHARGE SUMMARY Date Patient Seen: Aug 21, 2024 Time of Visit: 15:48 Supervising Physician: HECTOR AGGARWAL Supervising Physician: Dr. John Perez Primary Care Physician: Dr. 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 POA, resolved Left lower Lobe Bacterial Pneumonia POA Leukocytosis, resolved Acute Normocytic anemia, not POA, stable Acute Thrombocytopenia, resolving Electrolyte derangement ( Hyponatremia, Hypocalcemia, Hypomagnesemia) Recurrent seizure disorder , stable Medial malleolar fracture, acute and lateral fibula fracture, proximal, conservative management per ortho at this time Moderate Hypoalbuminemia Mild IDD Hypothyroidism Organic affective disorder with psychosis Osteoporosis Mood disorder Depression GERD Hypothyroidism Bruising around left orbit and lower extremities HX of RT ankle Fracture, Left sided weakness (Unknown if previous CVA) HOSPITAL COURSE: HPI (per admitting provider) The patient was treated for the following problems ACTIVE PROBLEM LIST FOR THE HOSPITALIZATION: Acute metabolic encephalopathy , resolved, was secondary to infection Septic Shock requiring pressors POA, resolved Left lower Lobe Bacterial Pneumonia POA Leukocytosis, resolved - patient treated with IV antiboitics , vasopressors . fluids and responded well RLE Malleolar fx - continue with boot per ortho mgt vs cast . weightbearing as tolerated in the boot/ cast and she can and follow up ortho in 1-2 weeks. 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: see above PROCEDURES: none New Medications: Amoxicillin/Potassium Clav (Amox Tr-K Clv 875-125 mg Tab) 875 Mg-125 Mg Tablet 1 TAB PO BID for 7 Days, #20 TAB 0 Refills Budesonide (Budesonide) 0.5 Mg/2 Ml Ampul.neb 0.5 MG IH BID for 5 Days, #1 BOX Ipratropium [place] (Atrovent Neb Soln) 0.2 Mg/Ml (0.02 %) Soln 0.5 MG IH Q6H for 7 Days, #1 BOX Levothyroxine Sodium (Synthroid 75 Mcg Tab) 75 Mcg Tablet 75 MCG PO SYN, #30 TAB Continued Medications: Alendronate Sodium (Alendronate Sodium) 10 Mg Tablet 1 TAB PO DAILY for osteoperosis for 30 Days, #30 TAB 0 Refills Divalproex Sodium (Divalproex Sodium) 250 Mg Tablet.dr 1 TAB PO TID for 30 Days, #60 TAB 0 Refills Escitalopram Oxalate (Escitalopram Oxalate) 20 Mg Tablet 1 TAB PO HS for 30 Days, #30 TAB 0 Refills Famotidine (Famotidine) 40 Mg Tablet 1 TAB PO DAILY for 30 Days, #30 TAB 0 Refills l-[place]-Khy Estr/Ethin Estra (Levono-E Estrad 0.15-0.03-0.01) 150-30(84) Tbdspk.3mo 1 TAB PO DAILY for 30 Days, #30 TAB 0 Refills Levetiracetam (Levetiracetam) 1,000 Mg Tablet 1 TAB PO BID for 30 Days, #60 TAB 0 Refills Lubiprostone (Amitiza) 24 Mcg Capsule 24 MCG PO DAILY, CAP Multivit,Calc,Mins/Iron/Folic (Therapeutic-M Tablet) 9 Mg Iron-400 Mcg Tablet 1 EACH PO DAILY, TAB Potassium Chloride (Potassium Chloride) 20 Meq Packet 1 PACKET PO DAILY for 30 Days, #30 PACKET 0 Refills Psyllium Husk (with Sugar) (Metamucil Powder) 3.4 Gram/12 Gram Powder 5 ML PO TID for 30 Days, #150 ML 0 Refills 8 am 2 pm 8 pm Risperidone (Risperidone) 1 Mg Tab.rapdis 1 TAB PO HS for 30 Days, #30 TAB 0 Refills Discontinued Medications: Levothyroxine Sodium (Levothyroxine) 50 Mcg Capsule 1 CAP PO DAILY for 30 Days, #30 CAP 0 Refills PHYSICAL EXAM: GENERAL: alert, weak, awake oriented x 2 HEENT: EOMI, Sclera non icteric, moist mucosa NECK: Supple, no JVD, trachea midline LUNGS: left side Ronchi breath sounds bilaterally. No wheezes HEART: Regular rate and rhythm. Normal S1 and S2, without murmurs ABD: Abdomen soft, nontender. Bowel sounds present EXT: No clubbing cyanosis or edema, Left side weakness, left lip droop (per Niece at bedside left side weakness at least for 1 year) NEURO: Alert and oriented to person, follows commands FOLLOW-UP: Follow-up with PCP in 2-3 days MD Noris - 1-2 weeks RECOMMENDATIONS: See Discharge Instructions This case was seen and discussed with my supervising physician. More than 30 minutes spent on discharge process, including evaluation of the patient, discussion with nursing staff, medication reconciliation and follow-up appointments DONAVAN LOMAS Aug 21, 2024 15:53
[2024-08-21 16:00] VITALS: BP 142/67; PULSE 46; RESP 20; TEMP 97.7
--- NOTE | 2024-08-21 16:30 | NUR ---
PICC LINE REMOVED Double lumen PICC to right upper extremity removed. Catheter tip intact. Pressure held for hemostasis x 3 minutes. No bleeding noted. Dressing applied. Addendum: 08/21/24 at 1631 by CAM PORTILLO RN RN Amended: Links added.
--- NOTE | 2024-08-21 18:00 | NUR ---
PATIENT DISCHARGED TO CARE HOME ID BAND AND PICC LINE REMOVED. PICC LINE REMOVED BY RN. DISCHARGE INSTRUCTIONS EXPLAINED AND GIVEN TO TRANSPORTER. BELONGINGS PACKED AND TAKEN BY PATIENT. WHEELED DOWN TO PRIVATE CAR BY TRANSPORTER.
[2024-08-21] MEDS ORDERED: BUDESONIDE 0.5 MG/2 ML INH IH SCH (21:00)
[2024-08-21] MEDS ORDERED: leveTIRACEtam 500 MG TABLET PO SCH (21:00)
[2024-08-22] MEDS ORDERED: levoTHYROxine 75 MCG TABLET PO SCH (06:30)
== END 2024-08-21 18:00 | disposition home or self-care (01) | DRG 871 ==
LOC: EDH 11:33 → EDHIP 11:34 → 2CH 17:15 → 3AH 08-19 14:30
PROVIDERS: ADMIT Internal Medicine Pulmonary Disease; ATTEND Internal Medicine Pulmonary Disease
PROC: 5A09357 Assistance with Respiratory Ventilation, Less than 24 Consecutive Hours, Continuous Positive Airway Pressure (ICD-10-PCS; principal; 2024-08-18)
PROC: 5A09357 Assistance with Respiratory Ventilation, Less than 24 Consecutive Hours, Continuous Positive Airway Pressure (ICD-10-PCS; 2024-08-19)
PROC: 5A09357 Assistance with Respiratory Ventilation, Less than 24 Consecutive Hours, Continuous Positive Airway Pressure (ICD-10-PCS; 2024-08-20)
DX: A41.9 Sepsis, unspecified organism (principal); G93.41 Metabolic encephalopathy; R65.21 Severe sepsis with septic shock; J18.9 Pneumonia, unspecified organism; E87.1 Hypo-osmolality and hyponatremia; E83.51 Hypocalcemia; D69.6 Thrombocytopenia, unspecified; K21.9 Gastro-esophageal reflux disease without esophagitis; G40.909 Epilepsy, unspecified, not intractable, without status epilepticus; M81.0 Age-related osteoporosis without current pathological fracture; Z20.822 Contact with and (suspected) exposure to COVID-19; E03.9 Hypothyroidism, unspecified; F32.A Depression, unspecified; D64.9 Anemia, unspecified; E83.42 Hypomagnesemia; E86.0 Dehydration; E88.09 Other disorders of plasma-protein metabolism, not elsewhere classified; Z79.899 Other long term (current) drug therapy
CPT/HCPCS: 36415; 36600; 70450; 70486; 70551; 71045; 73590; 73610; 74177; 78278; 78582; 80048; 80053; 81001; 82306; 82435; 82550; 82607; 82803; 82947; 83605; 83735; 83880; 84100; 84132; 84145; 84295; 84425; 84439; 84443; 84481; 84484; 85014; 85018; 85025; 85378; 85610; 85730; 86850; 86900; 86901; 87040; 87086; 87426; 87641; 87804; 92610; 93005; 93970; 94640; 94660; 96365; 99291; A9512; A9540; A9558; G0378; J0456; J1650; J1953; J2371; J2470; J2543; J3475; J3490; J7050; Q9967